=== PATIENT | male | born 1930 | race Caucasian/White ===

== ENCOUNTER 2019-04-15 16:44 | Emergency (ER) | payer MEDICARE, OTHER ==
[~2019-04-15] VITALS: Ht 177 cm; Wt 72.0 kg
[2019-04-15] MEDS ORDERED: NS IV 1000 ML 1,000 ML IV ONE (17:17)
[2019-04-15] MEDS ORDERED: ACETAMINOPHEN 500 MG TAB (TYLENOL) PO STA (17:17)
[2019-04-15] MEDS ORDERED: TETANUS,DIPTH,PERTUSS P/F (BOOSTRIX) 0.5 ML VIAL IM ONE (17:30)
--- NOTE | 2019-04-15 17:42 | ED Fall/Injury ---
General Chief Complaint: Trauma-Non Activation Stated Complaint: FALL/HEAD INJ Nursing Triage Note: PT FELL AND LANDED ON HIS FACE. ABRASION TO NOSE, RIGHT HAND, FOREHEAD Source: patient, family (grandaujannter and grandson) Exam Limitations: no limitations History of Present Illness Date Seen by Provider: Apr 15, 2019 Time Seen by Provider: 17:10 Initial Comments 89 yo male patient presents to the ED with c/o falling after slipping on the gravel at home. Patient reports landing on his face. He denies LOC, confusion, headache, dizziness, neck pain or back pain. abrasions noted to the rt hand, forehead, and nose. patient does c/o rt shoulder pain. Location Injury Occurred: HOME Occurred: just prior to arrival Injuries/Pain Location: head, face, upper extremity (rt hand and rt shoulder) Context: slipped Loss of Consciousness: no loss of consciousness Allergies and Home Medications Allergies Coded Allergies: Sulfa (Sulfonamide Antibiotics) (Unverified Allergy, Unknown, 04/15/19) Home Medications Tramadol HCl 50 Mg Tablet, 50 MG PO Q6H PRN for PAIN Prescribed by: KRUPA FELICIANO on 04/15/19 2227 Patient Home Medication List Home Medication List Reviewed: Yes Review of Systems Review of Systems Constitutional: no symptoms reported Eyes: No Symptoms Reported Ears, Nose, Mouth, Throat: see HPI Respiratory: no symptoms reported Cardiovascular: no symptoms reported Gastrointestinal: no symptoms reported Genitourinary: no symptoms reported Musculoskeletal: No back pain; joint pain (rt shoulder); No neck pain Skin: see HPI Psychiatric/Neurological: Denies Headache, Denies Numbness, Denies Paresthesia, Denies Seizure, Denies Tingling, Denies Weakness All Other Systems Reviewed Negative Unless Noted: Yes (Negative excepted noted.) Past Lixtolf-Lahwqn-Apxrpd Hx Past Med/Social Hx: Reviewed Nursing Past Med/Soc Hx Patient Social History Alcohol Use: Denies Use Recreational Drug Use: No Smoking Status: Never a Smoker 2nd Hand Smoke Exposure: No Recent Foreign Travel: No Contact w/Someone Who Travel: No Recent Infectious Disease Expo: No Recent Hopitalizations: No Physical Abuse: No Sexual Abuse: No Mistreated: No Fear: No Immunizations Up To Date Tetanus Booster (TDap): More than 5yrs Seasonal Allergies Seasonal Allergies: No Past Medical History Surgeries: Yes Adenoidectomy, Appendectomy, Tonsillectomy Respiratory: No Cardiac: No Neurological: No Genitourinary: Yes Prostate Problems, Kidney Stones Gastrointestinal: No Musculoskeletal: Yes (LEFT RIB FX) Fractures Endocrine: Yes Hypothyroidsim HEENT: Yes Cataract Loss of Vision: Denies Hearing Impairment: Denies Cancer: Yes Prostate Did You Recieve Any Treatments: Yes What Type of Treatment Did You: Other SEEDS IMPLANTED Psychosocial: No Integumentary: Yes Eczema Blood Disorders: No Family Medical History Reviewed Nursing Family Hx No Pertinent Family Hx Physical Exam Vital Signs Vital Signs - First Documented 04/15/19 16:53 Temp 37.0 Pulse 84 Resp 16 B/P (MAP) 147/107 (120) Pulse Ox 97 O2 Delivery Room Air Capillary Refill : Less Than 3 Seconds Height, Weight, BMI Height: '" Weight: lbs. oz. kg; 22.00 BMI Method: General Appearance: WD/WN, no apparent distress HEENT: PERRL/EOMI, TMs normal, pharynx normal, other (abrasions to the rt cheek and nose. No singh sign or raccoon eyes) Neck: non-tender, full range of motion, supple, normal inspection; No other (no stepoff deformity.) Cardiovascular: normal peripheral pulses, regular rate, rhythm, no edema, no gallop, no murmur Respiratory: chest non-tender, lungs clear, normal breath sounds, no respiratory distress, no accessory muscle use Peripheral Pulses: 2+ Carotid (R), 2+ Carotid (L), 2+ Dorsalis Pedis (R), 2+ Left Dors-Pedis (L), 2+ Radial Pulses (R), 2+ Radial Pulses (L) Gastrointestinal: normal bowel sounds, non tender, soft, no organomegaly; No distended Back: normal inspection, no vertebral tenderness; No decreased range of motion, No other (no stepoff deformity) Extremities: normal range of motion, no pedal edema, normal capillary refill, pelvis stable, other (right anterior shoulder mildly TTP. no swelling, ecchymosis or deformity. abrasions to the rt palm, rt thumb, rt posterio hand, and left thumb.) Neurologic/Psychiatric: alert, normal mood/affect, oriented x 3 Skin: normal color, warm/dry, other (see extremity and EENT exam above for description of abrasions.) Procedures/Interventions Wound Location: Face (right cheek) Wound Length (cm): 1.5 Wound's Depth, Shape: superficial, linear Betadine Prep?: No (wound scrubbed with chlorasept and sterile saline.) Other Closure Supply: Wound Adhesive Progress blood loss minimal. patient tolerated the procedure well. Progress/Results/Core Measures Results/Orders My Orders Orders - KRUPA FELICIANO Ed Iv/Invasive Line Start (04/15/19 17:17) Ct Head/Cervical Spine Wo (04/15/19 17:17) Shoulder, Right, 3 Views (04/15/19 17:17) Acetaminophen Tablet (Tylenol Tablet) (04/15/19 17:17) Dipht,Pertuss(Acell),Tet Adult (Boostrix (04/15/19 17:30) Ns Iv 1000 Ml (Sodium Chloride 0.9%) (04/15/19 17:17) Medications Given in ED Current Medications Medications Dose Ordered Sig/Linda Route Start Time Stop Time Status Last Admin Dose Admin Diphtheria/ Tetanus/Acell Pertussis 0.5 ml ONCE ONCE IM 04/15/19 17:30 04/15/19 17:31 DC 04/15/19 18:18 0.5 ML Sodium Chloride 1,000 ml @ 0 mls/hr Q0M ONCE IV 04/15/19 17:17 04/15/19 17:20 DC 04/15/19 17:26 999 MLS/HR Vital Signs/I&O 04/15/19 04/15/19 16:53 19:16 Temp 37.0 37.0 Pulse 84 80 Resp 16 16 B/P (MAP) 147/107 (120) 141/76 (120) Pulse Ox 97 100 O2 Delivery Room Air Room Air Blood Pressure Mean: 120 Diagnostic Imaging Diagonstic Imaging: CT Plain Films/CT/US/NM/MRI: c-spine, head Comments Date of Exam:04/15/19 CT HEAD/CERVICAL SPINE WO PROCEDURE: CT head and CT cervical spine without contrast. TECHNIQUE: Multiple contiguous axial images were obtained through the brain and cervical spine without the use of intravenous contrast. Sagittal and coronal reformations through the cervical spine were then performed. Auto Exposure Controls were utilized during the CT exam to meet ALARA standards for radiation dose reduction. INDICATION: Fell, head and neck pain. There are no prior studies available for comparison. CT HEAD: There is soft tissue edema over the right frontal bone. The bone windows show no sign of a skull fracture in this area however. No other acute bony abnormality appreciated either. There is no mass, shift of the midline or hemorrhage. The ventricles are not abnormally dilated. There are vague areas of low density in the periventricular white matter bilaterally. These findings are nonspecific but may be related to encephalomalacia from microvascular ischemia. Cortical atrophy is also seen. The degree of atrophy is consistent with the patient's age. The orbits and sinuses were not visualized in their entirety. Where visualized there is no acute abnormality. IMPRESSION: 1. There is soft tissue edema over the right frontal bone but there is no evidence for a skull fracture or for an acute intracranial abnormality. 2. If the patient's anticoagulated and if his symptoms of headache persist, then a short-term (24 hours) followup CT head exam should be obtained. 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 In addition there is moderate central stenosis on the right at this level with narrowing of the neural foramen on the right. There is also at least moderate degenerative disease at C5-C6 and C3-C4. There is no high-grade central stenosis at either of these levels or at any other level of the cervical spine. There is no fracture or acute bony abnormality evident. There is no sign of retropharyngeal edema. The thyroid gland is not well visualized but shows no definite abnormality. The lung apices are clear. IMPRESSION: 1. There is no sign acute bony abnormality. 2. There is degenerative disc and bone disease at C3-C4, C5-6 and C6-C7. The C6-C7 level is the most severely affected. Dictated on workstation # [id number] Reviewed: Reviewed by Me (radiology report reviewed by me) Diagonstic Imaging: Xray Plain Films/CT/US/NM/MRI: other (right shoulder) Comments Date of Exam:04/15/19 SHOULDER, RIGHT, 3 VIEWS Right shoulder at 5:42 Indication: Fell, shoulder pain. 3 views were obtained. There are no prior studies available for comparison. There is no fracture, dislocation or acute bony abnormality evident. There is mild degenerative disease of the glenohumeral joint and moderate degenerative disease of the acromioclavicular joint. The soft tissues are unremarkable. Impression: There is no evidence for an acute bony abnormality. Dictated on workstation # [id number] Reviewed: Reviewed by Me (radiology report reviewed by me) Departure Communication (Admissions) Patient seen and evaluated. CT head/cervical spine and x-ray of the right shoulder obtained. All findings discussed with the patient. All wounds sc rubbed with chlorhexidine and sterile saline. Steri-Strips with Mastisol applied to the skin tears of the left thumb and right hand. Dermabond applied to the nose abrasions and forehead abrasions. Plan for discharge to home. Impression Primary Impression: Minor head injury without loss of consciousness Qualified Codes: S09.90XA - Unspecified injury of head, initial encounter Additional Impressions: Laceration of right cheek Qualified Codes: S01.411A - Laceration without foreign body of right cheek and temporomandibular area, initial encounter Avulsion of skin of face Qualified Codes: S01.80XA - Unspecified open wound of other part of head, initial encounter Multiple skin tears Disposition: 01 HOME, SELF-CARE Condition: Improved Departure-Patient Inst. Decision time for Depature: 18:35 Referrals: NO,LOCAL PHYSICIAN (PCP/Family) Primary Care Physician Patient Instructions: Laceration Repair With Glue (DC), Minor Head Injury (DC) Add. Discharge Instructions: All discharge instructions reviewed with patient and/or family. Voiced understanding. Medications as instructed. Tylenol extra strength over-the- counter as directed for pain. Shower with antibacterial soap beginning tomorrow. No strenuous activity, lifting, pushing, pulling, climbing, bending over until released by your family practitioner. Ice pack as needed for pain. Follow-up with the family practitioner of your choice for recheck and to establish care as an outpatient, call tomorrow morning for appointment time. Return to the emergency department for worsened symptoms, changes in behavior, dizziness, seizure, vomiting, shortness of air, chest pain, numbness, weakness, or any other concerns. Scripts Tramadol HCl (Tramadol HCl) 50 Mg Tablet 50 MG PO Q6H PRN for PAIN, #10 TAB 0 Refills Prov: KRUPA FELICIANO 04/15/19 Work/School Note: Local [employer] Listing KRUPA FELICIANO Apr 15, 2019 17:42
--- NOTE | 2019-04-15 17:51 | Diagnostic Imaging Report ---
PROCEDURE: CT head and CT cervical spine without contrast. TECHNIQUE: Multiple contiguous axial images were obtained through the brain and cervical spine without the use of intravenous contrast. Sagittal and coronal reformations through the cervical spine were then performed. Auto Exposure Controls were utilized during the CT exam to meet ALARA standards for radiation dose reduction. INDICATION: Fell, head and neck pain. There are no prior studies available for comparison. CT HEAD: There is soft tissue edema over the right frontal bone. The bone windows show no sign of a skull fracture in this area however. No other acute bony abnormality appreciated either. There is no mass, shift of the midline or hemorrhage. The ventricles are not abnormally dilated. There are vague areas of low density in the periventricular white matter bilaterally. These findings are nonspecific but may be related to encephalomalacia from microvascular ischemia. Cortical atrophy is also seen. The degree of atrophy is consistent with the patient's age. The orbits and sinuses were not visualized in their entirety. Where visualized there is no acute abnormality. IMPRESSION: 1. There is soft tissue edema over the right frontal bone but there is no evidence for a skull fracture or for an acute intracranial abnormality. 2. If the patient's anticoagulated and if his symptoms of headache persist, then a short-term (24 hours) followup CT head exam should be obtained. 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 In addition there is moderate central stenosis on the right at this level with narrowing of the neural foramen on the right. There is also at least moderate degenerative disease at C5-C6 and C3-C4. There is no high-grade central stenosis at either of these levels or at any other level of the cervical spine. There is no fracture or acute bony abnormality evident. There is no sign of retropharyngeal edema. The thyroid gland is not well visualized but shows no definite abnormality. The lung apices are clear. IMPRESSION: 1. There is no sign acute bony abnormality. 2. There is degenerative disc and bone disease at C3-C4, C5-6 and C6-C7. The C6-C7 level is the most severely affected. Dictated by: Dictated on workstation # [id number]
--- NOTE | 2019-04-15 17:54 | Diagnostic Imaging Report ---
Right shoulder at 5:42 Indication: Fell, shoulder pain. 3 views were obtained. There are no prior studies available for comparison. There is no fracture, dislocation or acute bony abnormality evident. There is mild degenerative disease of the glenohumeral joint and moderate degenerative disease of the acromioclavicular joint. The soft tissues are unremarkable. Impression: There is no evidence for an acute bony abnormality. Dictated by: Dictated on workstation # [id number]
[2019-04-15] MEDS ORDERED: TRAM50TA2 PO (18:37)
[2019-04-15 19:16] VITALS: BP 141/76
== END 2019-04-15 19:16 | disposition home or self-care (01) ==
LOC: EDUNIT# 16:44 → ER 16:45
DX: S09.90XA Unspecified injury of head, initial encounter (principal); S01.411A Laceration without foreign body of right cheek and temporomandibular area, initial encounter; S01.80XA Unspecified open wound of other part of head, initial encounter; S61.012A Laceration without foreign body of left thumb without damage to nail, initial encounter; S61.411A Laceration without foreign body of right hand, initial encounter; E03.9 Hypothyroidism, unspecified; Z88.2 Allergy status to sulfonamides; Z90.89 Acquired absence of other organs; Z85.46 Personal history of malignant neoplasm of prostate; Z90.49 Acquired absence of other specified parts of digestive tract; Z87.442 Personal history of urinary calculi; W01.10XA Fall on same level from slipping, tripping and stumbling with subsequent striking against unspecified object, initial encounter; Y92.009 Unspecified place in unspecified non-institutional (private) residence as the place of occurrence of the external cause
CPT/HCPCS: 70450; 72125; 73030; 90715

== ENCOUNTER 2019-07-10 10:40 | Emergency (ER) | payer MEDICARE ==
[~2019-07-10] VITALS: Ht 177 cm; Wt 72.7 kg
[~2019-07-10 10:40] MED LIST: TRM50T PO
[2019-07-10] MEDS ORDERED: NITROGLYCERIN 0.4 MG SL TABS BTL 25'S SL ONE (10:53)
[2019-07-10] MEDS ORDERED: NITROGLYCERIN 0.4 MG SL TABS BTL 25'S SL PRN (11:00)
[2019-07-10] MEDS ORDERED: FAMOTIDINE 20MG/2ML IV (PEPCID) IV STA (11:02)
[2019-07-10 11:11] LABS: BASOPHILS % (AUTO) 0 % (0-10); EOSINOPHILS # (AUTO) 0.2 10^3/uL (0.0-0.3); EOSINOPHILS % (AUTO) 1 % (0-10); HEMATOCRIT 45 % (40-54); HEMOGLOBIN 15.1 G/DL (13.3-17.7); LYMPHOCYTES % (AUTO) 8 % (12-44); MEAN CORPUSCULAR HEMOGLOBIN 32 PG (25-34); MEAN CORPUSCULAR HGB CONC 33 G/DL (32-36); MEAN CORPUSCULAR VOLUME 96 FL (80-99); MEAN PLATELET VOLUME 10.8 FL (7.4-10.4); MONOCYTES # (AUTO) 1.3 X 10^3 (0.0-1.0); MONOCYTES % (AUTO) 10 % (0-12); NEUTROPHILS # (AUTO) 10.3 X 10^3 (1.8-7.8); NEUTROPHILS % (AUTO) 80 % (42-75); PLATELET COUNT 271 10^3/uL (130-400); RED CELL DISTRIBUTION WIDTH 14.9 % (10.0-14.5); WHITE BLOOD COUNT 12.9 10^3/uL (4.3-11.0)
[2019-07-10 11:23] LABS: PROTHROMBIN TIME PATIENT 13.1 SEC (12.2-14.7)
[2019-07-10 11:29] LABS: ALANINE AMINOTRANSFERASE 16 U/L (0-55); ALBUMIN 4.1 GM/DL (3.2-4.5); ALKALINE PHOSPHATASE 87 U/L (40-136); BILIRUBIN,TOTAL 0.4 MG/DL (0.1-1.0); BUN/CREATININE RATIO 21; CALCIUM 9.4 MG/DL (8.5-10.1); CARBON DIOXIDE 21 MMOL/L (21-32); CHLORIDE 107 MMOL/L (98-107); CREATININE SERUM 1.13 MG/DL (0.60-1.30); GFR ESTIMATED > 60; GLUCOSE 91 MG/DL (70-105); MAGNESIUM 1.8 MG/DL (1.6-2.4); SODIUM 141 MMOL/L (135-145); TOTAL PROTEIN 7.2 GM/DL (6.4-8.2)
--- NOTE | 2019-07-10 11:33 | Diagnostic Imaging Report ---
INDICATION: Chest pain. FINDINGS: The lungs are clear. The heart size and vascularity are normal. There is no failure, effusion, or pneumothorax. IMPRESSION: No acute appearing abnormality. Dictated by: Dictated on workstation # [id number]
[2019-07-10] MEDS ORDERED: ANTACID SUSP 30 ML UDC (MYLANTA) ONE (11:37)
[2019-07-10] MEDS ORDERED: LIDOCAINE 2% VISCOUS 15 ML UDC ONE (11:37)
[2019-07-10] MEDS ORDERED: LIDOCAINE 2% VISCOUS 15 ML UDC PO ONE (11:45)
[2019-07-10] MEDS ORDERED: ANTACID SUSP 30 ML UDC (MYLANTA) PO ONE (11:45)
--- NOTE | 2019-07-10 11:47 | ED Chest Pain ---
General Chief Complaint: Chest Pain Stated Complaint: CHEST PAIN Nursing Triage Note: ARRIVED VIA AMB TO ROOM 08 WITH CHEST PAIN STARTING AT 0300. PT STATES HE TOOK A FULL STRENGTH AT 0300 AND 0600. Nursing Sepsis Screen: No Definite Risk Source: patient Exam Limitations: no limitations History of Present Illness Date Seen by Provider: Jul 10, 2019 Time Seen by Provider: 10:55 Initial Comments Here with report of epigastric and low chest pain that started at 3 AM and went away after some breathing exercises. Came back at 6 AM and lasted for some time. He did take 2 full strength aspirins. Ultimately presented for the pain but it is gone now. Denies nausea, vomiting, breathing problems or sweating. States the pain is sharp. 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 NURSE: Yes NTG SL MATERNAL CHILD NURSE: No Associated Symptoms: abdominal pain; No back pain, No diaphoresis, No edema, No fever/chills, No nausea/vomiting, No shortness of breath, No weakness Allergies and Home Medications Allergies Coded Allergies: Sulfa (Sulfonamide Antibiotics) (Unverified Allergy, Unknown, 04/15/19) Home Medications Tramadol HCl 50 Mg Tablet, 50 MG PO Q6H PRN for PAIN Prescribed by: KRUPA FELICIANO on 04/15/19 [id number] Patient Home Medication List Home Medication List Reviewed: Yes Review of Systems Review of Systems Constitutional: see HPI; No chills, No fever EENTM: No Symptoms Reported Respiratory: No Symptoms Reported Cardiovascular: Denies Chest Pain Gastrointestinal: Abdominal Pain; Denies Diarrhea, Denies Nausea, Denies Vomiting Genitourinary: No Symptoms Reported Musculoskeletal: no symptoms reported Skin: no symptoms reported All Other Systems Reviewed Negative Unless Noted: Yes Past Ojalnyc-Zuhqqh-Cbikgn Hx Past Med/Social Hx: Reviewed Nursing Past Med/Soc Hx Patient Social History Alcohol Use: Denies Use Recreational Drug Use: No Smoking Status: Never a Smoker 2nd Hand Smoke Exposure: No Recent Foreign Travel: No Contact w/Someone Who Travel: No Recent Infectious Disease Expo: No Recent Hopitalizations: No Immunizations Up To Date Tetanus Booster (TDap): More than 5yrs Seasonal Allergies Seasonal Allergies: No Past Medical History Surgeries: Yes Adenoidectomy, Appendectomy, Tonsillectomy Respiratory: No Cardiac: No Neurological: No Genitourinary: Yes Prostate Problems, Kidney Stones Gastrointestinal: No Musculoskeletal: Yes (LEFT RIB FX) Fractures Endocrine: Yes Hypothyroidsim HEENT: Yes Cataract Loss of Vision: Denies Hearing Impairment: Denies Cancer: Yes Prostate Did You Recieve Any Treatments: Yes What Type of Treatment Did You: Other Psychosocial: No Integumentary: Yes Eczema Blood Disorders: No Family Medical History Reviewed Nursing Family Hx No Pertinent Family Hx Physical Exam Vital Signs Vital Signs - First Documented 07/10/19 10:40 Temp 37.0 Pulse 69 Resp 16 B/P (MAP) 169/80 (109) Pulse Ox 99 O2 Delivery Room Air Capillary Refill : Less Than 3 Seconds Height, Weight, BMI Height: '" Weight: lbs. oz. kg; 23.00 BMI Method: General Appearance: No Apparent Distress, WD/WN HEENT: PERRL/EOMI, Pharynx Normal Neck: Non Tender, Supple Respiratory: Lungs Clear, Normal Breath Sounds Cardiovascular: Regular Rate, Rhythm, No Murmur Gastrointestinal: Non Tender, Soft Extremity: Normal Range of Motion, Non Tender Neurologic/Psychiatric: Alert, Oriented x3 Skin: Normal Color, Warm/Dry, Other (as above block mole to the left upper chest) Progress/Results/Core Measures Results/Orders Lab Results Laboratory Tests Test 07/10/19 11:03 07/10/19 13:11 Range/Units White Blood Count 12.9 H 4.3-11.0 10^3/uL Red Blood Count 4.71 4.35-5.85 10^6/uL Hemoglobin 15.1 13.3-17.7 G/DL Hematocrit 45 40-54 % Mean Corpuscular Volume 96 80-99 FL Mean Corpuscular Hemoglobin 32 25-34 PG Mean Corpuscular Hemoglobin Concent 33 32-36 G/DL Red Cell Distribution Width 14.9 H 10.0-14.5 % Platelet Count 271 130-400 10^3/uL Mean Platelet Volume 10.8 H 7.4-10.4 FL Neutrophils (%) (Auto) 80 H 42-75 % Lymphocytes (%) (Auto) 8 L 12-44 % Monocytes (%) (Auto) 10 0-12 % Eosinophils (%) (Auto) 1 0-10 % Basophils (%) (Auto) 0 0-10 % Neutrophils # (Auto) 10.3 H 1.8-7.8 X 10^3 Lymphocytes # (Auto) 1.0 1.0-4.0 X 10^3 Monocytes # (Auto) 1.3 H 0.0-1.0 X 10^3 Eosinophils # (Auto) 0.2 0.0-0.3 10^3/uL Basophils # (Auto) 0.0 0.0-0.1 10^3/uL Prothrombin Time 13.1 12.2-14.7 SEC INR Comment 1.0 0.8-1.4 Activated Partial Thromboplast Time 37 H 24-35 SEC Sodium Level 141 135-145 MMOL/L Potassium Level 4.0 3.6-5.0 MMOL/L Chloride Level 107 98-107 MMOL/L Carbon Dioxide Level 21 21-32 MMOL/L Anion Gap 13 5-14 MMOL/L Blood Urea Nitrogen 24 H 7-18 MG/DL Creatinine 1.13 0.60-1.30 MG/DL Estimat Glomerular Filtration Rate > 60 BUN/Creatinine Ratio 21 Glucose Level 91 70-105 MG/DL Calcium Level 9.4 8.5-10.1 MG/DL Corrected Calcium 9.3 8.5-10.1 MG/DL Magnesium Level 1.8 1.6-2.4 MG/DL Total Bilirubin 0.4 0.1-1.0 MG/DL Aspartate Amino Transf (AST/SGOT) 16 5-34 U/L Alanine Aminotransferase (ALT/SGPT) 16 0-55 U/L Alkaline Phosphatase 87 40-136 U/L Myoglobin 48.5 10.0-92.0 NG/ML Troponin I < 0.028 < 0.028 <0.028 NG/ML Total Protein 7.2 6.4-8.2 GM/DL Albumin 4.1 3.2-4.5 GM/DL Free Thyroxine 0.88 0.70-1.48 NG/DL TSH Otter Testing 7.62 H 0.35-4.94 UIU/ML My Orders Orders - RADHA GRAYSON MD Ekg Tracing (07/10/19 10:42) Cbc With Automated Diff (07/10/19 10:44) Magnesium (07/10/19 10:44) Chest 1 View, Ap/Pa Only (1/7/20 10:44) Comprehensive Metabolic Panel (07/10/19 10:44) Myoglobin Serum (07/10/19 10:44) Protime With Inr (07/10/19 10:44) Partial Thromboplastin Time (07/10/19 10:44) O2 (07/10/19 10:44) Monitor-Rhythm Ecg Trace Only (07/10/19 10:44) Lipid Panel (07/11/19 06:00) Ed Iv/Invasive Line Start (07/10/19 10:44) Nitroglycerin 0.4 Mg Btl 25's (Nitrostat (07/10/19 11:00) Nitroglycerin 0.4 Mg Btl 25's (Nitrostat (07/10/19 10:53) Famotidine Injection (Pepcid Injection) (07/10/19 11:02) Troponin I (07/10/19 11:03) Thyroid Analyzer (07/10/19 11:39) Lidocaine 2% Viscous 15 Ml (Xylocaine Vi (07/10/19 11:45) Antacid Suspension (Mylanta Suspension (07/10/19 11:45) Antacid Suspension (Mylanta Suspension (07/10/19 11:37) Lidocaine 2% Viscous 15 Ml (Xylocaine Vi (07/10/19 11:37) Pantoprazole Injection (Protonix Injecti (07/10/19 12:00) Pantoprazole Injection (Protonix Injecti (07/10/19 11:52) Troponin I (07/10/19 13:00) Free T4 (Free Thyroxine) (07/10/19 11:03) Medications Given in ED Current Medications Medications Dose Ordered Sig/Linda Route Start Time Stop Time Status Last Admin Dose Admin Al Hydrox/Mg Hydrox/Simethicone 30 ml ONCE ONCE PO 07/10/19 11:45 07/10/19 11:46 DC 07/10/19 11:43 30 ML Lidocaine HCl 15 ml ONCE ONCE PO 07/10/19 11:45 07/10/19 11:46 DC 07/10/19 11:43 15 ML Pantoprazole 40 mg ONCE ONCE IV 07/10/19 12:00 07/10/19 12:01 DC 07/10/19 11:58 40 MG Vital Signs/I&O 07/10/19 10:40 Temp 37.0 Pulse 69 Resp 16 B/P (MAP) 169/80 (109) Pulse Ox 99 O2 Delivery Room Air Blood Pressure Mean: 109 Progress Progress Note : Progress Note Seen and evaluated. IV, labs, EKG and chest x-ray ordered. No aspirin as ER to check that. We will hold nitroglycerin at this point due to pain in resolved. Pepcid 20 mg IV. Monitor patient. 1145: Pain returned into the mid chest. We will try GI cocktail. If that does not help, we will give nitroglycerin sublingual. Monitor patient. Patient does report that he has been out of his meds including his reflux medicines for 3 days. They should be here now. We will go ahead and give Protonix 40 mg IV. 1340: Overall better. No return of chest pain. Repeat troponin is negative. This does seem to be more related to reflux than cardiovascular disease. I think is safe for discharge home but he will need follow-up with cardiology. This was discussed with patient and family. He again reports that he intends on following up with Dr. Otis Holbrook so I will go ahead and send a copy of his chart over to him so he has the information. Patient and family were given information on the sorting supervisor in [facility] and instructed for follow-up. Discharge home with return precautions. Patient and family verbalize understanding instructions and agreement with plan. 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 No evidence of ST elevation [place]. No previous available for comparison. Interpreted by me. Diagnostic Imaging Diagonstic Imaging: Xray Plain Films/CT/US/NM/MRI: chest Comments [facility] [place], [place] NAME: PENELOPE DELEON [facility] REC#: [id number] PT STATUS: REG ER : 1930 PHYSICIAN: RADHA GRAYSON MD ADMIT DATE: 07/10/19/ER Draft Date of Exam:07/10/19 CHEST 1 VIEW, AP/PA ONLY INDICATION: Chest pain. FINDINGS: The lungs are clear. The heart size and vascularity are normal. There is no failure, effusion, or pneumothorax. IMPRESSION: No acute appearing abnormality. Dictated on workstation # [id number] Dict: 07/10/19 1132 Trans: 07/10/19 1133 [id number] Interpreted by: DIANE ROCHE Electronically signed by: Departure Impression Primary Impression: Chest pain Qualified Codes: R07.9 - Chest pain, unspecified Additional Impression: Gastroesophageal reflux disease Qualified Codes: K21.9 - Gastro-esophageal reflux disease without esophagitis Disposition: HOME, SELF-CARE Condition: Stable Departure-Patient Inst. Decision time for Depature: 13:53 Referrals: [facility] Tarik JUSTIN MD, BASHAR J MD NO,LOCAL PHYSICIAN (PCP) Primary Care Physician OTIS HOLBROOK MD Patient Instructions: Chest Pain (DC), Acid Reflux (Gastroesophageal Reflux Disease), Adult (DC) Add. Discharge Instructions: All discharge instructions reviewed with patient and/or family. Voiced understanding. You need to follow-up with your primary care physician. Call and make appointment with Dr. Holbrook. Follow-up with one of the sorting supervisor listed within one week for recheck and further evaluation. Return for worse pain, fever, vomiting, weakness, breathing problems or other concerns as needed. You may take [id number] omeprazole 20 mg once daily until your prescription arrives for your stomach medicine. You may also take [id number] Pepcid/famotidine 20 mg once or twice daily as needed for heartburn. Copy Copies To 1: OTIS HOLBROOK MD, TIMOTHY D MD Jul 10, 2019 11:47
[2019-07-10] MEDS ORDERED: PANTOPRAZOLE 40 MG (PROTONIX) VIAL ONE (11:52)
[2019-07-10] MEDS ORDERED: PANTOPRAZOLE 40 MG (PROTONIX) VIAL IV ONE (12:00)
[2019-07-10 12:19] LABS: TSH (THYROID ANALYZER) 7.62 UIU/ML (0.35-4.94)
[2019-07-10 12:57] LABS: FREE T4 (FREE THYROXINE) 0.88 NG/DL (0.70-1.48)
--- NOTE | 2019-07-10 13:11 | NUR ---
repeat troponin drawn and sent to lab
[2019-07-10 14:09] VITALS: BP 144/80
[2019-07-10] MEDS ORDERED: OMEP40CA36 PO (14:09)
== END 2019-07-10 14:15 | disposition home or self-care (01) ==
LOC: EDUNIT# 10:40 → ER 10:41
DX: R07.9 Chest pain, unspecified (principal); K21.9 Gastro-esophageal reflux disease without esophagitis; E03.9 Hypothyroidism, unspecified; Z88.2 Allergy status to sulfonamides; Z85.46 Personal history of malignant neoplasm of prostate; Z90.89 Acquired absence of other organs; Z90.49 Acquired absence of other specified parts of digestive tract; Z87.442 Personal history of urinary calculi
CPT/HCPCS: 36415; 71045; 80053; 83735; 83874; 84439; 84443; 84484; 85025; 85610; 85730; 93005; 93041; 96374; 96375

== ENCOUNTER 2020-01-19 21:02 | Emergency (ER) | payer MEDICARE ==
[~2020-01-19] VITALS: Ht 177 cm; Wt 75.0 kg
[~2020-01-19 21:02] MED LIST changes: +OMEP40CA27 PO
--- OUTSIDE RECORDS SUMMARY | 2020-01-19 21:09 | XMS REPORT | Continuity of Care Document ---
Author Organization Unknown Address Unknown Phone Unavailable Allergies Active Description Code Type Severity Reaction Onset Reported/Identified Relationship to Patient Clinical Status Yes Sulfa (Sulfonamide Antibiotics) [id number] 0491 Drug Allergy Unknown N/A 019 Medications There is no data. Problems Date Dx Coded Attending Type Code Diagnosis Diagnosed By 11/15/2018 Winifred Valenzuela W R21 Rash Winifred Valenzuela 04/15/2019 KRUPA BELLAMY Ot E03.9 HYPOTHYROIDISM, UNSPECIFIED 04/15/2019 KRUPA BELLAMY Ot S01.411A LACERATION W/O FB OF RIGHT CHEEK AND TMJ 04/15/2019 KRUPA BELLAMY Ot S01.80XA UNSPECIFIED OPEN WOUND OF OTHER PART OF 04/15/2019 KRUPA BELLAMY Ot S09.90XA UNSPECIFIED INJURY OF HEAD, INITIAL ENCO 04/15/2019 KRUPA BELLAMY Ot S61.012A LACERATION W/O FB OF LEFT THUMB W/O ERMA 04/15/2019 KRUPA BELLAMY Ot S61.411A LACERATION WITHOUT FOREIGN BODY OF RIGHT 04/15/2019 KRUPA BELLAMY Ot W01.10XA FALL SAME LEV FROM SLIP/TRIP W STRIKE AG 04/15/2019 KRUPA BELLAMY Ot Y92.[address] [facility] [address] IN [facility] NON-INSTITUT (PRIVATE 04/15/2019 KRUPA BELLAMY Ot Z85.46 PERSONAL HISTORY OF MALIGNANT NEOPLASM O 04/15/2019 KRUPA BELLAMY Ot Z87.442 PERSONAL HISTORY OF URINARY CALCULI 04/15/2019 KRUPA BELLAMY Ot Z88.2 ALLERGY STATUS TO SULFONAMIDES STATUS 04/15/2019 KRUPA BELLAMY Ot Z90.49 ACQUIRED ABSENCE OF OTHER SPECIFIED PART 04/15/2019 KRUPA BELLAMY Ot Z90.89 ACQUIRED ABSENCE OF OTHER ORGANS 04/27/2019 KRUPA BELLAMY Ot E03.9 HYPOTHYROIDISM, UNSPECIFIED 04/27/2019 KRUPA BELLAMY Ot S01.411A LACERATION W/O FB OF RIGHT CHEEK AND TMJ 04/27/2019 KRUPA BELLAMY Ot S01.80XA UNSPECIFIED OPEN WOUND OF OTHER PART OF 04/27/2019 KRUPA BELLAMY Ot S09.90XA UNSPECIFIED INJURY OF HEAD, INITIAL ENCO 04/27/2019 KRUPA BELLAMY Ot S61.012A LACERATION W/O FB OF LEFT THUMB W/O ERMA 04/27/2019 KRUPA BELLAMY Ot S61.411A LACERATION WITHOUT FOREIGN BODY OF RIGHT 04/27/2019 KRUPA BELLAMY Ot W01.10XA FALL SAME LEV FROM SLIP/TRIP W STRIKE AG 04/27/2019 KRUPA BELLAMY Ot Y92.[address] IN [facility] NON-INSTITUT (PRIVATE 04/27/2019 KRUPA BELLAMY Ot Z85.46 PERSONAL HISTORY OF MALIGNANT NEOPLASM O 04/27/2019 KRUPA BELLAMY Ot Z87.442 PERSONAL HISTORY OF URINARY CALCULI 04/27/2019 KRUPA BELLAMY Ot Z88.2 ALLERGY STATUS TO SULFONAMIDES STATUS 04/27/2019 KRUPA BELLAMY Ot Z90.49 ACQUIRED ABSENCE OF OTHER SPECIFIED PART 04/27/2019 KRUPA BELLAMY Ot Z90.89 ACQUIRED ABSENCE OF OTHER ORGANS 07/10/2019 RADHA GRAYSON MD, Ot E03.9 HYPOTHYROIDISM, UNSPECIFIED 07/10/2019 RADHA GRAYSON MD, Ot K21.9 GASTRO-ESOPHAGEAL REFLUX DISEASE WITHOUT 07/10/2019 RADHA GRAYSON MD Ot R07.9 CHEST PAIN, UNSPECIFIED 07/10/2019 RADHA GRAYSON MD Ot Z85.46 PERSONAL HISTORY OF MALIGNANT NEOPLASM O 07/10/2019 RADHA GRAYSON MD, Ot Z87.442 PERSONAL HISTORY OF URINARY CALCULI 07/10/2019 RADHA GRAYSON MD Ot Z88.2 ALLERGY STATUS TO SULFONAMIDES STATUS 07/10/2019 RADHA GRAYSON MD Ot Z90.49 ACQUIRED ABSENCE OF OTHER SPECIFIED PART 07/10/2019 RADHA GRAYSON MD Ot Z90.89 ACQUIRED ABSENCE OF OTHER ORGANS 07/16/2019 RADHA GRAYSON MD, Ot E03.9 HYPOTHYROIDISM, UNSPECIFIED 07/16/2019 RADHA GRAYSON MD, Ot K21.9 GASTRO-ESOPHAGEAL REFLUX DISEASE WITHOUT 07/16/2019 RADHA GRAYSON MD, Ot R07.9 CHEST PAIN, UNSPECIFIED 07/16/2019 RADHA GRAYSON MD, Ot Z85.46 PERSONAL HISTORY OF MALIGNANT NEOPLASM O 07/16/2019 RADHA GRAYSON MD, Ot Z87.442 PERSONAL HISTORY OF URINARY CALCULI 07/16/2019 RADHA GRAYSON MD, Ot Z88.2 ALLERGY STATUS TO SULFONAMIDES STATUS 07/16/2019 RADHA GRAYSON MD, Ot Z90.49 ACQUIRED ABSENCE OF OTHER SPECIFIED PART 07/16/2019 RADHA GRAYSON MD, Ot Z90.89 ACQUIRED ABSENCE OF OTHER ORGANS Procedures Code Description [place] [address] OFFI CE VISIT-RETURN Winifred Valenzuela 11/15/2018 [id number] [facility] Nicolas Winifred 11/15/2018 Results Test Result Range Complete blood count (CBC) with automate d white blood cell (WBC) differential - 07/10/19 11:03 Blood leukocytes automated count (number/volume) 12.9 10*3/uL 4.3-11.0 Blood erythrocytes automated count (number/volume) 4.71 10*6/uL 4.35-5.85 Venous blood hemoglobin measurement (mass/volume) 15.1 g/dL 13.3-17.7 Blood hematocrit (volume fraction) 45 % 40-54 Automated erythrocyte mean corpuscular volume 96 [ foz_us] 80-99 Automated erythrocyte mean corpuscular h emoglobin (mass per erythrocyte) 32 pg 25-34 Automated erythrocyte mean corpuscular h emoglobin concentration measurement (mass/volume) 33 g/dL 32-36 Automated erythrocyte distribution width ratio 14. 9 % 10.0- 14.5 Automated blood platelet count (count/volume) 271 10*3/uL 130-400 Automated blood platelet mean volume measurement 10.8 [foz_us] 7.4-10.4 Automated blood neutrophils/100 leukocytes 80 % 42-75 Automated blood lymphocytes/100 leukocytes 8 % 12-44 Blood monocytes/100 leukocytes 10 % 0-12 Automated blood eosinophils/100 leukocytes 1 % 0-10 Automated blood basophils/100 leukocytes 0 % 0-10 Blood neutrophils automated count (number/volume) 10.3 10*3 1.8-7.8 Blood lymphocytes automated count (number/volume) 1.0 10*3 1.0-4.0 Blood monocytes automated count (number/volume) 1. 3 10*3 0.0-1.0 Automated eosinophil count 0.2 10*3/uL 0 .0-0.3 Automated blood basophil count (count/volume) 0.0 10*3/uL 0.0-0.1 PT panel in platelet poor plasma by coag ulation assay - 07/10/19 11:03 Prothrombin time (PT) in platelet poor plasma by coagu lation assay 13.1 s 12.2-14.7 INR in platelet poor plasma or blood by coagulation as say 1.0 0.8-1.4 Activated partial thromboplastin time (a PTT) in platelet poor plasma bycoagulation assay - 07/10/19 11:03 Activated partial thromboplastin time (a PTT) in platelet poor plasma bycoagulation assay 37 s 24-35 Comprehensive metabolic panel - 07/10/19 11:03 Serum or plasma sodium measurement (moles/volume) 141 mmol/L 135-145 Serum or plasma potassium measurement (moles/volume) 4.0 mmol/L 3.6-5.0 Serum or plasma chloride measurement (moles/volume) 107 mmol/L 98-107 Carbon dioxide 21 mmol/L 21-32 Serum or plasma anion gap determination (moles/volume) 13 mmol/L 5-14 Serum or plasma urea nitrogen measurement (mass/volume ) 24 mg/dL 7-18 Serum or plasma creatinine measurement (mass/volume) 1.13 mg/dL 0.60-1.30 Serum or plasma urea nitrogen/creatinine mass ratio 21 NRG Serum or plasma creatinine measurement w ith calculation of estimated glomerular filtration rate > NRG Serum or plasma glucose measurement (mass/volume) 91 mg/dL 70-105 Serum or plasma calcium measurement (mass/volume) 9.4 mg/dL 8.5-10.1 Serum or plasma total bilirubin measurement (mass/volu me) 0.4 mg/dL 0.1-1.0 Serum or plasma alkaline phosphatase cody surement (enzymatic activity/volume) 87 U/L 40-136 Serum or plasma aspartate aminotransfera se measurement (enzymatic activity/volume) 16 U/L 5-34 Serum or plasma alanine aminotransferase measurement (enzymatic activity/volume) 16 U/L 0-55 Serum or plasma protein measurement (mass/volume) 7.2 g/dL 6.4-8.2 Serum or plasma albumin measurement (mass/volume) 4.1 g/dL 3.2-4.5 CALCIUM CORRECTED 9.3 mg/dL 8.5-10.1 Magnesium - 07/10/19 11:03 Magnesium 1.8 mg/dL 1.6-2.4 Serum or plasma troponin i.cardiac measu rement (mass/volume) - 07/10/19 11:03 Serum or plasma troponin i.cardiac measurement (mass/v olume) < ng/mL <0.028 Myoglobin, serum - 07/10/19 11:03 Myoglobin, serum 48.5 ng/mL 10.0-92.0 Serum or plasma thyroxine (T4) free cyndi urement (mass/volume) - 07/10/19 11:03 Serum or plasma thyroxine (T4) free measurement (mass/ volume) 0.88 ng/dL 0.70-1.48 Serum or plasma thyrotropin measurement by detection limit <=0.05 miu/l (units/volume) - 07/10/19 11:03 Serum or plasma thyrotropin measurement by detection limit <=0.05 miu/l (units/volume) 7.62 u[iU]/mL 0.35-4.94 Serum or plasma troponin i.cardiac measu rement (mass/volume) - 07/10/19 13:11 Serum or plasma troponin i.cardiac measurement (mass/v olume) < ng/mL <0.028 Encounters ACCT No. Visit Date/Time Discharge Status Pt. Type Provider Facility Loc./Unit Complaint [id number] 11/15/2018 10:45:00 11/15/2018 23:5 9:59 CLS Outpatient Winifred Valenzuela [id number] 07/10/2019 10:41:00 020 14:15:00 DIS Emergency RENUKA DOMÍNGUEZ, RADHA [facility] ER CHEST PAIN [id number] 04/15/2019 16:45:00 19:16:00 DIS Emergency JODIE MARQUEZ, KRUPA Mcall[facility] ER FALL/HEAD INJ
[2020-01-19 21:37] LABS: BASOPHILS % (AUTO) 0 % (0-10); EOSINOPHILS # (AUTO) 0.4 10^3/uL (0.0-0.3); EOSINOPHILS % (AUTO) 5 % (0-10); HEMATOCRIT 43 % (40-54); HEMOGLOBIN 14.4 G/DL (13.3-17.7); LYMPHOCYTES # (AUTO) 0.8 X 10^3 (1.0-4.0); LYMPHOCYTES % (AUTO) 9 % (12-44); MEAN CORPUSCULAR HEMOGLOBIN 31 PG (25-34); MEAN CORPUSCULAR HGB CONC 33 G/DL (32-36); MEAN CORPUSCULAR VOLUME 95 FL (80-99); MEAN PLATELET VOLUME 10.6 FL (7.4-10.4); MONOCYTES # (AUTO) 0.5 X 10^3 (0.0-1.0); MONOCYTES % (AUTO) 5 % (0-12); NEUTROPHILS # (AUTO) 7.3 X 10^3 (1.8-7.8); NEUTROPHILS % (AUTO) 81 % (42-75); PLATELET COUNT 304 10^3/uL (130-400); RED CELL DISTRIBUTION WIDTH 13.8 % (10.0-14.5)
[2020-01-19 21:47] LABS: ALBUMIN 3.8 GM/DL (3.2-4.5); CHLORIDE 107 MMOL/L (98-107); POTASSIUM 3.9 MMOL/L (3.6-5.0); SODIUM 139 MMOL/L (135-145)
[2020-01-19 21:49] LABS: CALCIUM 8.8 MG/DL (8.5-10.1)
[2020-01-19 21:50] LABS: GLUCOSE 119 MG/DL (70-105); TOTAL PROTEIN 6.9 GM/DL (6.4-8.2)
[2020-01-19 21:51] LABS: CARBON DIOXIDE 19 MMOL/L (21-32)
[2020-01-19 21:52] LABS: BILIRUBIN,TOTAL 0.8 MG/DL (0.1-1.0)
[2020-01-19 21:53] LABS: ALKALINE PHOSPHATASE 69 U/L (40-136)
[2020-01-19 21:54] LABS: CREATININE SERUM 1.46 MG/DL (0.60-1.30); GFR ESTIMATED 46
[2020-01-19 21:55] LABS: BUN/CREATININE RATIO 12
[2020-01-19 21:56] LABS: ALANINE AMINOTRANSFERASE 15 U/L (0-55); MAGNESIUM 1.7 MG/DL (1.6-2.4)
--- NOTE | 2020-01-19 22:05 | ED General ---
General Chief Complaint: General Problems/Pain Stated Complaint: WEAKNESS/SWOLLEN LEGS Nursing Triage Note: Pt ambulates to [facility] 3 with c/o "body itch" x 4.5 yrs that's gotten worse over past 5 days, unrelieved by eucerin cream presscribed by clover. Nursing Sepsis Screen: No Definite Risk Source of Information: Patient Exam Limitations: No Limitations History of Present Illness Date Seen by Provider: Jan 19, 2020 Time Seen by Provider: 21:25 Initial Comments Here with report of a variety of complaints but seems to be centered around itching to the upper and lower extremities that keeps waking him up daily. When his family dropped him off, they reported that he had weakness and swollen legs. Patient states that he actually is tired and he is itching. Denies chest pain or breathing problems. Does admit to feeling weak but attributes that to the tiredness. He apparently has had a variety of treatments for the itching of the skin of his chest and upper and lower extremities. Currently this involves Eucerin cream but he has been on steroids in the past. He states the steroids did not do anything. Denies fever or chills. Denies upper respiratory symptoms, cough or shortness of breath. Does admit to swelling of the legs with left greater than right and states that's typical. Timing/Duration: 1 Week Severity: Moderate Associated Systoms: No Chest Pain, No Cough, No Fever/Chills, No Nausea/Vomiting, No Shortness of Air; Weakness Allergies and Home Medications Allergies Coded Allergies: Sulfa (Sulfonamide Antibiotics) (Unverified Allergy, Unknown, 04/15/19) Home Medications Omeprazole 40 Mg Capsule.dr, 40 MG PO DAILY Prescribed by: RADHA GRAYSON on 07/10/19 1409 Tramadol HCl 50 Mg Tablet, 50 MG PO Q6H PRN for PAIN Prescribed by: KRUPA FELICIANO on 04/15/19 1837 Patient Home Medication List Home Medication List Reviewed: Yes Review of Systems Review of Systems Constitutional: see HPI; No chills, No fever EENTM: No nose congestion, No throat pain Respiratory: No cough, No short of breath Cardiovascular: No chest pain; edema (left lower extremity and to lesser extent right lower extremity. States typical and unchanged) Gastrointestinal: no symptoms reported Genitourinary: no symptoms reported Skin: change in color, lesions, pruritus, rash (involving upper and lower extremities and anterior torso and low back) Psychiatric/Neurological: See HPI Hematologic/Lymphatic: No Symptoms Reported All Other Systems Reviewed Negative Unless Noted: Yes Past Lifqign-Sxbuce-Bfdatv Hx Past Med/Social Hx: Reviewed Nursing Past Med/Soc Hx Patient Social History Alcohol Use: Denies Use Recreational Drug Use: No Smoking Status: Never a Smoker 2nd Hand Smoke Exposure: No Recent Foreign Travel: No Contact w/Someone Who Travel: No Recent Infectious Disease Expo: No Recent Hopitalizations: No Immunizations Up To Date Tetanus Booster (TDap): More than 5yrs Seasonal Allergies Seasonal Allergies: No Past Medical History Surgeries: Yes Adenoidectomy, Appendectomy, Tonsillectomy Respiratory: No Cardiac: No Neurological: No Genitourinary: Yes Prostate Problems, Kidney Stones Gastrointestinal: No Musculoskeletal: Yes (LEFT RIB FX) Fractures Endocrine: Yes Hypothyroidsim HEENT: Yes Cataract Loss of Vision: Denies Hearing Impairment: Denies Cancer: Yes Prostate Did You Recieve Any Treatments: Yes What Type of Treatment Did You: Other Psychosocial: No Integumentary: Yes Eczema Blood Disorders: No Family Medical History Reviewed Nursing Family Hx No Pertinent Family Hx Physical Exam Vital Signs Vital Signs - First Documented 01/19/20 21:15 Temp 37.0 Pulse 114 Resp 20 B/P (MAP) 123/24 (57) Pulse Ox 96 O2 Delivery Room Air Capillary Refill : Less Than 3 Seconds Height, Weight, BMI Height: '" Weight: lbs. oz. kg; 23.00 BMI Method: General Appearance: No Apparent Distress, Thin HEENT: PERRL/EOMI, Pharynx Normal Neck: Non Tender, Supple Respiratory: Lungs Clear, Normal Breath Sounds Cardiovascular: No Murmur, Tachycardia Gastrointestinal: Non Tender, Soft Back: Normal Inspection, No CVA Tenderness, No Vertebral Tenderness Extremity: Normal Range of Motion, Non Tender, Pedal Edema (2+ bilateral lower extremities to mid tibia left slightly worse than right) Neurologic/Psychiatric: Alert, Oriented x3 Skin: Warm/Dry, Erythema, Rash (fine rash noted to bilateral upper extremities especially on the volar surfaces and near the antecubital space. Also notes a rash to the anterior torso greatest on the abdomen but also noted on the chest and low back. Bilateral lower extremities noted especially in the area of the thighs.) Progress/Results/Core Measures Suspected Sepsis Recent Fever Within 48 Hours: No Infection Criteria Present: None New/Unexplained Altered Menta: No Sepsis Screen: No Definite Risk SIRS Temperature: Pulse: 114 Respiratory Rate: 20 Laboratory Tests 01/19/20 21:31: White Blood Count 9.0 Blood Pressure 123 /24 Mean: 57 Laboratory Tests 01/19/20 21:31: Creatinine 1.46H, Platelet Count 304, Total Bilirubin 0.8 Results/Orders Lab Results Laboratory Tests Test 01/19/20 21:31 Range/Units White Blood Count 9.0 4.3-11.0 10^3/uL Red Blood Count 4.59 4.35-5.85 10^6/uL Hemoglobin 14.4 13.3-17.7 G/DL Hematocrit 43 40-54 % Mean Corpuscular Volume 95 80-99 FL Mean Corpuscular Hemoglobin 31 25-34 PG Mean Corpuscular Hemoglobin Concent 33 32-36 G/DL Red Cell Distribution Width 13.8 10.0-14.5 % Platelet Count 304 130-400 10^3/uL Mean Platelet Volume 10.6 H 7.4-10.4 FL Neutrophils (%) (Auto) 81 H 42-75 % Lymphocytes (%) (Auto) 9 L 12-44 % Monocytes (%) (Auto) 5 0-12 % Eosinophils (%) (Auto) 5 0-10 % Basophils (%) (Auto) 0 0-10 % Neutrophils # (Auto) 7.3 1.8-7.8 X 10^3 Lymphocytes # (Auto) 0.8 L 1.0-4.0 X 10^3 Monocytes # (Auto) 0.5 0.0-1.0 X 10^3 Eosinophils # (Auto) 0.4 H 0.0-0.3 10^3/uL Basophils # (Auto) 0.0 0.0-0.1 10^3/uL Sodium Level 139 135-145 MMOL/L Potassium Level 3.9 3.6-5.0 MMOL/L Chloride Level 107 98-107 MMOL/L Carbon Dioxide Level 19 L 21-32 MMOL/L Anion Gap 13 5-14 MMOL/L Blood Urea Nitrogen 18 7-18 MG/DL Creatinine 1.46 H 0.60-1.30 MG/DL Estimat Glomerular Filtration Rate 46 BUN/Creatinine Ratio 12 Glucose Level 119 H 70-105 MG/DL Calcium Level 8.8 8.5-10.1 MG/DL Corrected Calcium 9.0 8.5-10.1 MG/DL Magnesium Level 1.7 1.6-2.4 MG/DL Total Bilirubin 0.8 0.1-1.0 MG/DL Aspartate Amino Transf (AST/SGOT) 19 5-34 U/L Alanine Aminotransferase (ALT/SGPT) 15 0-55 U/L Alkaline Phosphatase 69 40-136 U/L Troponin I < 0.028 <0.028 NG/ML B-Type Natriuretic Peptide 23.3 <100.0 PG/ML Total Protein 6.9 6.4-8.2 GM/DL Albumin 3.8 3.2-4.5 GM/DL My Orders Orders - RADHA GRAYSON MD Ns Iv 500 Ml (Sodium Chloride 0.9%) (01/19/20 22:10) Prednisone Tablet (Deltasone Tablet) (01/19/20 23:00) Hydroxyzine Cap/Tab (Vistaril) (01/19/20 23:45) Medications Given in ED Current Medications Medications Dose Ordered Sig/Linda Route Start Time Stop Time Status Last Admin Dose Admin Prednisone 40 mg ONCE ONCE PO 01/19/20 23:00 01/19/20 23:01 DC 01/19/20 23:06 40 MG Sodium Chloride 500 ml @ 0 mls/hr Q0M ONCE IV 01/19/20 22:10 01/19/20 22:11 DC 01/19/20 22:48 500 MLS/HR Vital Signs/I&O 01/19/20 21:15 Temp 37.0 Pulse 114 Resp 20 B/P (MAP) 123/24 (57) Pulse Ox 96 O2 Delivery Room Air Capillary Refill : Less Than 3 Seconds Blood Pressure Mean: 57 Progress Note : Progress Note Seen and evaluated. IV, labs, EKG and chest x-ray ordered. Denies chest pain so no need for aspirin at this point. We will check basic labs. We will also call family to verify presenting complaints. Patient is adamant about that he is not having other problems other than itching. Monitor patient. 2330: We are discussed with the patient's family regarding presentation. They agree and admit that there is concerns related to the itching. This has been a chronic problem but worse over the last week. He does follow with Dr. Caceres. Labs and additional evaluation are not concerning. Prednisone 40 mg by mouth. Hydroxyzine 25 mg by mouth 1 now but he will not continue that outpatient. We will initiate Medrol Dosepak outpatient. He will continue follow-up with his primary doctor and radio reporter. Discharged home with return precautions. Patient verbalize understanding instructions and agreement with plan. ECG Initial ECG Impression Date: Jan 19, 2020 Initial ECG Impression Time: 21:31 Initial ECG Rate: 100 Initial ECG Rhythm: S.Tach Comment Sinus tachycardia with left axis deviation. Left atrial enlargement and left anterior fascicular block. No evidence of ST elevation MD. Similar to previous of 07/10/19. Interpreted by me. Diagnostic Imaging Diagonstic Imaging: Xray Plain Films/CT/US/NM/MRI: chest Comments NAME: PENELOPE DELEON MED REC#: [id number] PT STATUS: REG ER : 1930 PHYSICIAN: CLARENCE FREED APRN ADMIT DATE: 01/19/20/ER Draft Date of Exam:01/19/20 CHEST 1 VIEW, AP/PA ONLY INDICATION: Body itches. Worsening over the last 5 days. EXAMINATION: Chest, 01/19/2020. COMPARISON: 07/10/2019. FINDINGS: The cardiomediastinal silhouette is unremarkable. The pulmonary vasculature is within normal limits. The lungs and pleural spaces are clear. IMPRESSION: No evidence of an acute cardiopulmonary process. Dictated on workstation # [id number] Dict: 01/19/20 2157 Trans: 01/19/20 2209 [facility] [id number] Interpreted by: WEST ZHANG MD Electronically signed by: Departure Impression Primary Impression: Pruritus Additional Impression: Eczema Qualified Codes: L30.9 - Dermatitis, unspecified Disposition: HOME, SELF-CARE Condition: Stable Departure-Patient Inst. Decision time for Depature: 23:36 Referrals: NO,LOCAL PHYSICIAN (PCP/Family) Primary Care Physician Patient Instructions: Eczema (Atopic Dermatitis) (DC), Itchy Skin Add. Discharge Instructions: All discharge instructions reviewed with patient and/or family. Voiced understanding. Take medications as directed. Follow-up with your in a few days for recheck. Call her office for appointment. You may also call and make follow-up with your radio reporter to be rechecked this week if possible. Return for worse pain, weakness, breathing problems or other concerns as needed. Scripts Methylprednisolone (Methylprednisolone Dose Pack) 4 Mg Tablet 4 MG PO UD for 6 Days, #21 TAB 0 Refills FOLLOW DOSE PACK INSTRUCTIONS Prov: RADHA GRAYSON MD 01/19/20 RADHA GRAYSON MD Jan 19, 2020 22:05
--- NOTE | 2020-01-19 22:09 | Diagnostic Imaging Report ---
INDICATION: Body itches. Worsening over the last 5 days. EXAMINATION: Chest, 01/19/2020. COMPARISON: 07/10/2019. FINDINGS: The cardiomediastinal silhouette is unremarkable. The pulmonary vasculature is within normal limits. The lungs and pleural spaces are clear. IMPRESSION: No evidence of an acute cardiopulmonary process. Dictated by: Dictated on workstation # [id number]
[2020-01-19] MEDS ORDERED: NS IV 500 ML 500 ML IV ONE (22:10)
[2020-01-19] MEDS ORDERED: predniSONE 20 MG TAB PO ONE (23:00)
[2020-01-19] MEDS ORDERED: METH4TAB11 PO (23:38)
[2020-01-19 23:42] VITALS: BP 129/66
[2020-01-19] MEDS ORDERED: hydrOXYzine (VISTARIL/ATARAX) 25 MG capsule/tablet PO ONE (23:45)
== END 2020-01-19 23:44 | disposition home or self-care (01) ==
LOC: EDUNIT# 21:02 → ER 21:04
DX: L29.9 Pruritus, unspecified (principal); L30.9 Dermatitis, unspecified; Z88.2 Allergy status to sulfonamides; Z85.46 Personal history of malignant neoplasm of prostate
CPT/HCPCS: 36415; 71045; 80053; 83735; 83880; 84484; 85025; 93005

== ENCOUNTER 2020-01-31 11:15 | Emergency (ER) | payer MEDICARE, OTHER ==
[~2020-01-31] VITALS: Ht 177.8 cm; Wt 74.8 kg
[~2020-01-31 11:15] MED LIST changes: +METH4TAB11 PO
--- NOTE | 2020-01-31 11:32 | ED General ---
General Stated Complaint: WEAKNESS Source of Information: Patient, Family Exam Limitations: No Limitations History of Present Illness Date Seen by Provider: Jan 31, 2020 Time Seen by Provider: 11:29 Initial Comments To ER by private vehicle accompanied by daughter with reports of general weakness. He was seen here recently for a diffuse rash and given a Medrol Dosepak. Timing/Duration: Getting Worse, Intermittent Severity: Moderate Associated Systoms: Weakness Allergies and Home Medications Allergies Coded Allergies: Sulfa (Sulfonamide Antibiotics) (Unverified Allergy, Unknown, 04/15/19) Home Medications Methylprednisolone 4 Mg Tablet, 4 MG PO UD FOLLOW DOSE PACK INSTRUCTIONS Prescribed by: RADHA GRAYSON on 01/19/20 2338 Omeprazole 40 Mg Capsule.dr, 40 MG PO DAILY Prescribed by: RADHA GRAYSON on 07/10/19 1409 Tramadol HCl 50 Mg Tablet, 50 MG PO Q6H PRN for PAIN Prescribed by: KRUPA FELICIANO on 04/15/19 1837 Patient Home Medication List Home Medication List Reviewed: Yes Review of Systems Review of Systems Constitutional: see HPI; No chills, No fever EENTM: see HPI Respiratory: no symptoms reported; No cough, No dyspnea on exertion, No short of breath Cardiovascular: no symptoms reported; No chest pain Gastrointestinal: No abdominal pain Genitourinary: no symptoms reported Musculoskeletal: no symptoms reported Skin: see HPI, pruritus, rash Psychiatric/Neurological: No Symptoms Reported Hematologic/Lymphatic: No Symptoms Reported Immunological/Allergic: no symptoms reported Past Bneqjmz-Mhcbvu-Tcpgzw Hx Patient Social History 2nd Hand Smoke Exposure: No Recent Foreign Travel: No Contact w/Someone Who Travel: No Recent Hopitalizations: No Immunizations Up To Date Tetanus Booster (TDap): More than 5yrs Seasonal Allergies Seasonal Allergies: No Past Medical History Surgeries: Yes Adenoidectomy, Appendectomy, Tonsillectomy Respiratory: No Cardiac: No Neurological: No Genitourinary: Yes Prostate Problems, Kidney Stones Gastrointestinal: No Musculoskeletal: Yes (LEFT RIB FX) Fractures Endocrine: Yes Hypothyroidsim HEENT: Yes Cataract Loss of Vision: Denies Hearing Impairment: Denies Cancer: Yes Prostate Did You Recieve Any Treatments: Yes What Type of Treatment Did You: Other Psychosocial: No Integumentary: Yes Eczema Blood Disorders: No Family Medical History No Pertinent Family Hx Physical Exam Vital Signs Vital Signs - First Documented 01/31/20 11:25 Temp 36.8 Pulse 98 Resp 18 B/P (MAP) 124/79 (94) Pulse Ox 97 O2 Delivery Room Air Capillary Refill : Height, Weight, BMI Height: '" Weight: lbs. oz. kg; 23.00 BMI Method: General Appearance: No Apparent Distress, WD/WN Eyes: Bilateral Eye Normal Inspection, Bilateral Eye PERRL, Bilateral Eye EOMI Neck: Full Range of Motion Respiratory: Lungs Clear, Normal Breath Sounds, No Accessory Muscle Use, No Respiratory Distress Cardiovascular: Regular Rate, Rhythm, Normal Peripheral Pulses Gastrointestinal: Non Tender, Soft Extremity: Normal Capillary Refill, Normal Inspection Neurologic/Psychiatric: Alert, Oriented x3 Skin: Normal Color, Warm/Dry, Other (erythema with skin thickening and fissuring over the flexor surfaces of the arm. The rash that was present during his last visit I did take a look at and on the torso it is overall significantly improved.) Comments Despite allegations of weakness, he presents to ER and is ambulatory to room 6 without use of assistive device and able to carry on conversation while walking. Progress/Results/Core Measures Suspected Sepsis SIRS Temperature: Pulse: Respiratory Rate: Laboratory Tests 01/31/20 11:46: White Blood Count 7.1 Blood Pressure / Mean: Laboratory Tests 01/31/20 11:46: Creatinine 1.43H, Platelet Count 220, Total Bilirubin 0.6 Results/Orders Lab Results Laboratory Tests Test 01/31/20 11:46 01/31/20 12:45 Range/Units White Blood Count 7.1 4.3-11.0 10^3/uL Red Blood Count 4.55 4.35-5.85 10^6/uL Hemoglobin 14.0 13.3-17.7 G/DL Hematocrit 43 40-54 % Mean Corpuscular Volume 93 80-99 FL Mean Corpuscular Hemoglobin 31 25-34 PG Mean Corpuscular Hemoglobin Concent 33 32-36 G/DL Red Cell Distribution Width 13.1 10.0-14.5 % Platelet Count 220 130-400 10^3/uL Mean Platelet Volume 9.7 7.4-10.4 FL Neutrophils (%) (Auto) 85 H 42-75 % Lymphocytes (%) (Auto) 6 L 12-44 % Monocytes (%) (Auto) 1 0-12 % Eosinophils (%) (Auto) 7 0-10 % Basophils (%) (Auto) 0 0-10 % Neutrophils # (Auto) 6.0 1.8-7.8 X 10^3 Lymphocytes # (Auto) 0.5 L 1.0-4.0 X 10^3 Monocytes # (Auto) 0.1 0.0-1.0 X 10^3 Eosinophils # (Auto) 0.5 H 0.0-0.3 10^3/uL Basophils # (Auto) 0.0 0.0-0.1 10^3/uL Neutrophils % (Manual) 87 % Lymphocytes % (Manual) 5 % Monocytes % (Manual) 3 % Eosinophils % (Manual) 5 % Basophils % (Manual) 0 % Band Neutrophils 0 % Blood Morphology Comment NORMAL Sodium Level 138 135-145 MMOL/L Potassium Level 3.7 3.6-5.0 MMOL/L Chloride Level 106 98-107 MMOL/L Carbon Dioxide Level 22 21-32 MMOL/L Anion Gap 10 5-14 MMOL/L Blood Urea Nitrogen 33 H 7-18 MG/DL Creatinine 1.43 H 0.60-1.30 MG/DL Estimat Glomerular Filtration Rate 47 BUN/Creatinine Ratio 23 Glucose Level 78 70-105 MG/DL Calcium Level 9.0 8.5-10.1 MG/DL Corrected Calcium 9.2 8.5-10.1 MG/DL Total Bilirubin 0.6 0.1-1.0 MG/DL Aspartate Amino Transf (AST/SGOT) 17 5-34 U/L Alanine Aminotransferase (ALT/SGPT) 24 0-55 U/L Alkaline Phosphatase 72 40-136 U/L Troponin I < 0.028 <0.028 NG/ML B-Type Natriuretic Peptide < 10.0 <100.0 PG/ML Total Protein 6.7 6.4-8.2 GM/DL Albumin 3.7 3.2-4.5 GM/DL Thyroid Stimulating Hormone (TSH) 3.20 0.35-4.94 UIU/ML Free Thyroxine 1.03 0.70-1.48 NG/DL Urine Color YELLOW Urine Clarity CLEAR Urine pH 6.0 5-9 Urine Specific [place] 1.025 H 1.016-1.022 Urine Protein 1+ H NEGATIVE Urine Glucose (UA) NEGATIVE NEGATIVE Urine Ketones TRACE H NEGATIVE Urine Nitrite NEGATIVE NEGATIVE Urine Bilirubin 1+ H NEGATIVE Urine Urobilinogen 0.2 < = 1.0 MG/DL Urine Leukocyte Esterase NEGATIVE NEGATIVE Urine RBC (Auto) TRACE-I NEGATIVE Urine RBC RARE /HPF Urine WBC 2-5 /HPF Urine Squamous Epithelial Cells RARE /HPF Urine Crystals NONE /LPF Urine Bacteria TRACE /HPF Urine Casts NONE /LPF Urine Mucus NEGATIVE /LPF Urine Culture Indicated NO My Orders Orders - CLARENCE FREED APRN Ua Culture If Indicated (01/31/20 11:32) Troponin I (01/31/20 11:32) Ekg Tracing (01/31/20 11:32) Chest 1 View, Ap/Pa Only (01/31/20 11:32) BNP (01/31/20 11:32) Thyroid Stimulating Hormone (01/31/20 11:32) Free T4 (Free Thyroxine) (01/31/20 11:32) Ed Iv/Invasive Line Start (01/31/20 11:32) Ns Iv 500 Ml (Sodium Chloride 0.9%) (01/31/20 11:45) Cbc With Automated Diff (01/31/20 11:56) Comprehensive Metabolic Panel (01/31/20 11:56) Manual Differential (01/31/20 11:46) Vital Signs/I&O 01/31/20 11:25 Temp 36.8 Pulse 98 Resp 18 B/P (MAP) 124/79 (94) Pulse Ox 97 O2 Delivery Room Air Capillary Refill : Diagnostic Imaging Diagonstic Imaging: Xray Comments NAME: PENELOPE DELEON [facility] REC#: [id number] PT STATUS: REG ER : 1930 PHYSICIAN: CLARENCE FREED APRN ADMIT DATE: 01/31/20/ER Draft Date of Exam:01/31/20 CHEST 1 VIEW, AP/PA ONLY CLINICAL INDICATION: Patient complains of weakness. Patient had recent skin changes and diagnosed with eczema. No other symptoms per patient. EXAM: Portable chest x-ray upright view. COMPARISONS: Chest x-ray dated 01/19/2020. FINDINGS: Lungs/pleura: Lungs are clear. There is no pneumothorax. There is no pleural effusion. Mediastinum: Unremarkable. Pulmonary vasculature: Unremarkable. Heart: Unremarkable. Bones/extrathoracic soft tissue: There are degenerative spurs involving the thoracic spine. Old healed left rib fractures are again seen. IMPRESSION: Stable chest x-ray exam with no interval radiographic evidence of acute cardiopulmonary process. Dictated on workstation # [id number] Dict: 01/31/20 1226 Trans: 01/31/20 1230 [facility] [id number] Interpreted by: KIMBER UMAÑA MD Electronically signed by: Departure Communication (Admissions) Made an appointment for him with Dr. Holbrook tomorrow at 10:30 AM. Impression Primary Impression: Intermittent weakness Disposition: 01 HOME, SELF-CARE Condition: Stable Departure-Patient Inst. Decision time for Depature: 12:36 Referrals: NO,LOCAL PHYSICIAN (PCP/Family) Primary Care Physician Patient Instructions: Generalized Weakness Add. Discharge Instructions: I've made an appointment for you with Dr. Holbrook tomorrow at 10:30 AM. Copy Copies To 1: ROBBIE HOLBROOK MD, PETER J APRN Jan 31, 2020 11:32
[2020-01-31] MEDS ORDERED: NS IV 500 ML 500 ML IV SCH (11:45)
[2020-01-31 12:02] LABS: BASOPHILS % (AUTO) 0 % (0-10); EOSINOPHILS # (AUTO) 0.5 10^3/uL (0.0-0.3); EOSINOPHILS % (AUTO) 7 % (0-10); HEMATOCRIT 43 % (40-54); LYMPHOCYTES # (AUTO) 0.5 X 10^3 (1.0-4.0); LYMPHOCYTES % (AUTO) 6 % (12-44); MEAN CORPUSCULAR HEMOGLOBIN 31 PG (25-34); MEAN CORPUSCULAR HGB CONC 33 G/DL (32-36); MEAN CORPUSCULAR VOLUME 93 FL (80-99); MEAN PLATELET VOLUME 9.7 FL (7.4-10.4); MONOCYTES # (AUTO) 0.1 X 10^3 (0.0-1.0); MONOCYTES % (AUTO) 1 % (0-12); NEUTROPHILS % (AUTO) 85 % (42-75); PLATELET COUNT 220 10^3/uL (130-400); RED CELL DISTRIBUTION WIDTH 13.1 % (10.0-14.5); WHITE BLOOD COUNT 7.1 10^3/uL (4.3-11.0)
[2020-01-31 12:18] LABS: ALBUMIN 3.7 GM/DL (3.2-4.5); BILIRUBIN,TOTAL 0.6 MG/DL (0.1-1.0); CREATININE SERUM 1.43 MG/DL (0.60-1.30); POTASSIUM 3.7 MMOL/L (3.6-5.0); TOTAL PROTEIN 6.7 GM/DL (6.4-8.2)
--- OUTSIDE RECORDS SUMMARY | 2020-01-31 12:25 | XMS REPORT | Continuity of Care Document ---
Author Organization Unknown Address Unknown Phone Unavailable Allergies Active Description Code Type Severity Reaction Onset Reported/Identified Relationship to Patient Clinical Status Yes Sulfa (Sulfonamide Antibiotics) [id number] Drug Allergy Unknown N/A 019 Medications [...] STRIKE AG 04/15/2019 KRUPA BELLAMY Ot Y92.[address] [facility] [address] IN [facility] NON-INSTITUT (PRIVATE 04/15/2019 KRUPA BELLAMY Ot Z85.46 [...] KRUPA BELLAMY Ot Y92.[address] IN [facility] NON-INSTITUT (PRIVATE 04/27/2019 KRUPA BELLAMY Ot Z85.46 [...] ABSENCE OF OTHER ORGANS 07/16/2019 RADHA GRAYSON MD Ot E03.9 HYPOTHYROIDISM, UNSPECIFIED 07/16/2019 RADHA GRAYSON MD Ot K21.9 GASTRO-ESOPHAGEAL REFLUX DISEASE WITHOUT 07/16/2019 RADHA GRAYSON MD Ot R07.9 CHEST PAIN, UNSPECIFIED 07/16/2019 RADHA GRAYSON MD Ot Z85.46 PERSONAL HISTORY OF MALIGNANT NEOPLASM O 07/16/2019 RADHA GRAYSON MD Ot Z87.442 PERSONAL HISTORY OF URINARY CALCULI 07/16/2019 RADHA GRAYSON MD Ot Z88.2 ALLERGY STATUS TO SULFONAMIDES STATUS 07/16/2019 RADHA GRAYSON MD Ot Z90.49 ACQUIRED ABSENCE OF OTHER SPECIFIED PART 07/16/2019 RADHA GRAYSON MD Ot Z90.89 ACQUIRED ABSENCE OF OTHER ORGANS 01/22/2020 RADHA GRAYSON MD Ot L29.9 PRURITUS, UNSPECIFIED 01/22/2020 RADHA GRAYSON MD Ot L30.9 DERMATITIS, UNSPECIFIED 01/22/2020 RADHA GRAYSON MD Ot R53.1 WEAKNESS 01/22/2020 RADHA GRAYSON MD Ot Z85.46 PERSONAL HISTORY OF MALIGNANT NEOPLASM O 01/22/2020 RADHA GRAYSON MD Ot Z88.2 ALLERGY STATUS TO SULFONAMIDES STATUS 01/25/2020 RADHA GRAYSON MD Ot L29.9 PRURITUS, UNSPECIFIED 01/25/2020 RADHA GRAYSON MD Ot L30.9 DERMATITIS, UNSPECIFIED 01/25/2020 RADHA GRAYSON MD Ot R53.1 WEAKNESS 01/25/2020 RADHA GRAYSON MD Ot Z85.46 PERSONAL HISTORY OF MALIGNANT NEOPLASM O 01/25/2020 RADHA GRAYSON MD Ot Z88.2 ALLERGY STATUS TO SULFONAMIDES STATUS 01/27/2020 RADHA GRAYSON MD Ot L29.9 PRURITUS, UNSPECIFIED 01/27/2020 RADHA GRAYSON MD Ot L30.9 DERMATITIS, UNSPECIFIED 01/27/2020 RADHA GRAYSON MD Ot R53.1 WEAKNESS 01/27/2020 RADHA GRAYSON MD Ot Z85.46 PERSONAL HISTORY OF MALIGNANT NEOPLASM O 01/27/2020 RENUKA DOMÍNGUEZ, RADHA Jerome Ot Z88.2 ALLERGY STATUS TO SULFONAMIDES STATUS Procedures Code Description [place] [id number] OFFI CE VISIT-RETURN Winifred Valenzuela 11/15/2018 [id number] [facility] Nicolas Winifred 11/15/2018 Results Test Result [...] i.cardiac measurement (mass/v olume) < ng/mL <0.028 Complete blood count (CBC) with automate d white blood cell (WBC) differential - 01/19/20 21:31 Blood leukocytes automated count (number/volume) 9.0 10*3/uL 4.3-11.0 Blood erythrocytes automated count (number/volume) 4.59 10*6/uL 4.35-5.85 Venous blood hemoglobin measurement (mass/volume) 14.4 g/dL 13.3-17.7 Blood hematocrit (volume fraction) 43 % 40-54 Automated erythrocyte mean corpuscular volume 95 [ foz_us] 80-99 Automated erythrocyte mean corpuscular h emoglobin (mass per erythrocyte) 31 pg 25-34 Automated erythrocyte mean corpuscular h emoglobin concentration measurement (mass/volume) 33 g/dL 32-36 Automated erythrocyte distribution width ratio 13. 8 % 10.0- 14.5 Automated blood platelet count (count/volume) 304 10*3/uL 130-400 Automated blood platelet mean volume measurement 10.6 [foz_us] 7.4-10.4 Automated blood neutrophils/100 leukocytes 81 % 42-75 Automated blood lymphocytes/100 leukocytes 9 % 12-44 Blood monocytes/100 leukocytes 5 % 0-12 Automated blood eosinophils/100 leukocytes 5 % 0-10 Automated blood basophils/100 leukocytes 0 % 0-10 Blood neutrophils automated count (number/volume) 7.3 10*3 1.8-7.8 Blood lymphocytes automated count (number/volume) 0.8 10*3 1.0-4.0 Blood monocytes automated count (number/volume) 0. 5 10*3 0.0-1.0 Automated eosinophil count 0.4 10*3/uL 0 .0-0.3 Automated blood basophil count (count/volume) 0.0 10*3/uL 0.0-0.1 Comprehensive metabolic panel - 01/19/20 21:31 Serum or plasma sodium measurement (moles/volume) 139 mmol/L 135-145 Serum or plasma potassium measurement (moles/volume) 3.9 mmol/L 3.6-5.0 Serum or plasma chloride measurement (moles/volume) 107 mmol/L 98-107 Carbon dioxide 19 mmol/L 21-32 Serum or plasma anion gap determination (moles/volume) 13 mmol/L 5-14 Serum or plasma urea nitrogen measurement (mass/volume ) 18 mg/dL 7-18 Serum or plasma creatinine measurement (mass/volume) 1.46 mg/dL 0.60-1.30 Serum or plasma urea nitrogen/creatinine mass ratio 12 NRG Serum or plasma creatinine measurement w ith calculation of estimated glomerular filtration rate 46 NRG Serum or plasma glucose measurement (mass/volume) 119 mg/dL 70-105 Serum or plasma calcium measurement (mass/volume) 8.8 mg/dL 8.5-10.1 Serum or plasma total bilirubin measurement (mass/volu me) 0.8 mg/dL 0.1-1.0 Serum or plasma alkaline phosphatase cody surement (enzymatic activity/volume) 69 U/L 40-136 Serum or plasma aspartate aminotransfera se measurement (enzymatic activity/volume) 19 U/L 5-34 Serum or plasma alanine aminotransferase measurement (enzymatic activity/volume) 15 U/L 0-55 Serum or plasma protein measurement (mass/volume) 6.9 g/dL 6.4-8.2 Serum or plasma albumin measurement (mass/volume) 3.8 g/dL 3.2-4.5 CALCIUM CORRECTED 9.0 mg/dL 8.5-10.1 Magnesium - 01/19/20 21:31 Magnesium 1.7 mg/dL 1.6-2.4 Serum or plasma troponin i.cardiac measu rement (mass/volume) - 01/19/20 21:31 Serum or plasma troponin i.cardiac measurement (mass/v olume) < ng/mL <0.028 Serum or plasma lithium measurement (mol es/volume) - 01/19/20 21:31 BNP PT 23.3 pg/mL <100.0 Encounters ACCT No. Visit Date/Time Discharge Status Pt. Type Provider Facility Loc./Unit Complaint [id number] 11/15/2018 10:45:00 11/15/2018 23:5 9:59 CLS Outpatient Winifred Valenzuela Derek [id number] 01/19/2020 21:04:00 23:44:00 DIS Outpatient RADHA GRAYSON MD [facility] ER WEAKNESS/SWOLLE N LEGS [id number] 07/10/2019 10:41:00 020 14:15:00 DIS Emergency RADHA GRAYSON MD [facility] ER CHEST PAIN [id number] 04/15/2019 16:45:00 019 19:16:00 DIS Emergency KRUPA BELLAMY [facility] ER FALL/HEAD INJ
[2020-01-31 12:31] LABS: BAND NEUTROPHILS 0 %; BASOPHILS % (MANUAL) 0 %; EOSINOPHILS % (MANUAL) 5 %; LYMPHOCYTES % (MANUAL) 5 %; MONOCYTES % (MANUAL) 3 %; NEUTROPHILS % (MANUAL) 87 %; RBC MORPH NORMAL
--- NOTE | 2020-01-31 12:31 | Diagnostic Imaging Report ---
CLINICAL INDICATION: Patient complains of weakness. Patient had recent skin changes and diagnosed with eczema. No other symptoms per patient. EXAM: Portable chest x-ray upright view. COMPARISONS: Chest x-ray dated 01/19/2020. FINDINGS: Lungs/pleura: Lungs are clear. There is no pneumothorax. There is no pleural effusion. Mediastinum: Unremarkable. Pulmonary vasculature: Unremarkable. Heart: Unremarkable. Bones/extrathoracic soft tissue: There are degenerative spurs involving the thoracic spine. Old healed left rib fractures are again seen. IMPRESSION: Stable chest x-ray exam with no interval radiographic evidence of acute cardiopulmonary process. Dictated by: Dictated on workstation # [id number]
[2020-01-31 12:39] LABS: FREE T4 (FREE THYROXINE) 1.03 NG/DL (0.70-1.48)
[2020-01-31 12:53] LABS: CLARITY,URINE CLEAR; COLOR,URINE YELLOW; GLUCOSE, URINE (UA) NEGATIVE (NEGATIVE); KETONES,URINE TRACE (NEGATIVE); LEUKOCYTE ESTERASE ,URINE NEGATIVE (NEGATIVE); NITRITE,URINE NEGATIVE (NEGATIVE); PROTEIN,URINE 1+ (NEGATIVE)
[2020-01-31 13:11] LABS: BACTERIA,URINE TRACE /HPF; BILIRUBIN,URINE 1+ (NEGATIVE); RBC,URINE RARE /HPF; SQUAMOUS EPITHELIAL CELL,UR RARE /HPF
--- NOTE | 2020-01-31 13:24 | NUR ---
Contacted daughter, Sari, regarding pt report et findings. This RN reviewed discharge instructions with Sari who voices no c/o or concerns regarding care recieved while in ED care.
[2020-01-31] MEDS ORDERED: ONDANSETRON 4 MG/2 ML (SDV) Z0FRAN ONE (13:28)
[2020-01-31] MEDS ORDERED: ONDANSETRON 4 MG/2 ML (SDV) Z0FRAN IVP ONE (13:30)
[2020-01-31 13:40] VITALS: BP 126/73
== END 2020-01-31 13:40 | disposition home or self-care (01) ==
LOC: EDUNIT# 11:15 → ER 11:16
DX: R53.1 Weakness (principal); Z88.2 Allergy status to sulfonamides; Z85.46 Personal history of malignant neoplasm of prostate
CPT/HCPCS: 36415; 71045; 80053; 81000; 83880; 84439; 84443; 84484; 85007; 85027; 93005

== ENCOUNTER → 2020-02-07 | Outpatient (CLI) | payer MEDICARE, OTHER ==
[~2020-02-07] VITALS: Ht 177 cm; Wt 75.0 kg
[~2020-02-07] MED LIST changes: +CETI10TA17 PO; +CHOL100048 PO; +LEVO25TA5 PO; +MAGN500C15 PO
== END ==
LOC: PREOP 05:38
PROVIDERS: ATTEND Specialist
DX: Z01.818 Encounter for other preprocedural examination (principal); H25.11 Age-related nuclear cataract, right eye

== ENCOUNTER 2020-02-08 07:22 | Day surgery (SDC) | payer MEDICARE, OTHER ==
[~2020-02-08] VITALS: Ht 177 cm; Wt 75.0 kg
--- OUTSIDE RECORDS SUMMARY | 2020-02-08 07:40 | XMS REPORT | Continuity of Care Document ---
Author Organization Unknown Address Unknown Phone Unavailable Allergies Active Description Code Type Severity Reaction Onset Reported/Identified Relationship to Patient Clinical Status Yes Sulfa (Sulfonamide Antibiotics) [id number] 0491 Drug Allergy Unknown N/A 019 Medications [...] STRIKE AG 04/15/2019 KRUPA BELLAMY Ot Y92.[address] [facility] [address] IN [facility] NON-INSTITUT (PRIVATE 04/15/2019 KRUPA BELLAMY Ot [...] KRUPA BELLAMY Ot Y92.[address] IN [facility] NON-INSTITUT (PRIVATE 04/27/2019 KRUPA BELLAMY Ot Z85.46 PERSONAL HISTORY OF MALIGNANT NEOPLASM O 04/27/2019 KRUPA BELLAMY Ot Z87.442 PERSONAL HISTORY OF URINARY CALCULI 04/27/2019 KRUPA BELLAMY Ot Z88.2 ALLERGY STATUS TO SULFONAMIDES STATUS 04/27/2019 KRUPA BELLAMY Ot Z90.49 ACQUIRED ABSENCE OF OTHER SPECIFIED PART 04/27/2019 KRUPA BELLAMY Ot Z90.89 ACQUIRED ABSENCE OF OTHER ORGANS 07/10/2019 RDAHA GRAYSON MD, Ot E03.9 HYPOTHYROIDISM, UNSPECIFIED 07/10/2019 [...] Ot Z90.89 ACQUIRED ABSENCE OF OTHER ORGANS 01/19/2020 RADHA GRAYSON MD Ot L29.9 PRURITUS, UNSPECIFIED 01/19/2020 RADHA GRAYSON MD Ot L30.9 DERMATITIS, UNSPECIFIED 01/19/2020 RADHA GRAYSON MD Ot R53.1 WEAKNESS 01/19/2020 RADHA GRAYSON MD Ot Z85.46 PERSONAL HISTORY OF MALIGNANT NEOPLASM O 01/19/2020 RADHA GRAYSON MD Ot Z88.2 ALLERGY STATUS TO SULFONAMIDES STATUS 01/22/2020 RADHA GRAYSON MD Ot L29.9 PRURITUS, [...] PERSONAL HISTORY OF MALIGNANT NEOPLASM O 01/27/2020 RADHA GRAYSON MD Ot Z88.2 ALLERGY STATUS TO SULFONAMIDES STATUS 02/02/2020 CLARENCE FREED APRN Ot R53 .1 WEAKNESS 02/02/2020 CLARENCE FREED APRN Ot Z85.46 PERSONAL HISTORY OF MALIGNANT NEOPLASM O 02/02/2020 CLARENCE FREED APRN Ot Z88 .2 ALLERGY STATUS TO SULFONAMIDES STATUS Procedures Code Description [place] [id number] OFFI CE VISIT-RETURN Nicolas Winifred 11/15/2018 [id number] [facility] 11/15/2018 Results Test Result Range Complete blood [...] 01/19/20 21:31 BNP PT 23.3 pg/mL <100.0 Complete blood count (CBC) with automate d white blood cell (WBC) differential - 01/31/20 11:46 Blood leukocytes automated count (number/volume) 7.1 10*3/uL 4.3-11.0 Blood erythrocytes automated count (number/volume) 4.55 10*6/uL 4.35-5.85 Venous blood hemoglobin measurement (mass/volume) 14.0 g/dL 13.3-17.7 Blood hematocrit (volume fraction) 43 % 40-54 Automated erythrocyte mean corpuscular volume 93 [ foz_us] 80-99 Automated erythrocyte mean corpuscular h emoglobin (mass per erythrocyte) 31 pg 25-34 Automated erythrocyte mean corpuscular h emoglobin concentration measurement (mass/volume) 33 g/dL 32-36 Automated erythrocyte distribution width ratio 13. 1 % 10.0- 14.5 Automated blood platelet count (count/volume) 220 10*3/uL 130-400 Automated blood platelet mean volume measurement 9.7 [foz_us] 7.4-10.4 Automated blood neutrophils/100 leukocytes 85 % 42-75 Automated blood lymphocytes/100 leukocytes 6 % 12-44 Blood monocytes/100 leukocytes 1 % 0-12 Automated blood eosinophils/100 leukocytes 7 % 0-10 Automated blood basophils/100 leukocytes 0 % 0-10 Blood neutrophils automated count (number/volume) 6.0 10*3 1.8-7.8 Blood lymphocytes automated count (number/volume) 0.5 10*3 1.0-4.0 Blood monocytes automated count (number/volume) 0. 1 10*3 0.0-1.0 Automated eosinophil count 0.5 10*3/uL 0 .0-0.3 Automated blood basophil count (count/volume) 0.0 10*3/uL 0.0-0.1 Comprehensive metabolic panel - 01/31/20 11:46 Serum or plasma sodium measurement (moles/volume) 138 mmol/L 135-145 Serum or plasma potassium measurement (moles/volume) 3.7 mmol/L 3.6-5.0 Serum or plasma chloride measurement (moles/volume) 106 mmol/L 98-107 Carbon dioxide 22 mmol/L 21-32 Serum or plasma anion gap determination (moles/volume) 10 mmol/L 5-14 Serum or plasma urea nitrogen measurement (mass/volume ) 33 mg/dL 7-18 Serum or plasma creatinine measurement (mass/volume) 1.43 mg/dL 0.60-1.30 Serum or plasma urea nitrogen/creatinine mass ratio 23 NRG Serum or plasma creatinine measurement w ith calculation of estimated glomerular filtration rate 47 NRG Serum or plasma glucose measurement (mass/volume) 78 mg/dL 70-105 Serum or plasma calcium measurement (mass/volume) 9.0 mg/dL 8.5-10.1 Serum or plasma total bilirubin measurement (mass/volu me) 0.6 mg/dL 0.1-1.0 Serum or plasma alkaline phosphatase cody surement (enzymatic activity/volume) 72 U/L 40-136 Serum or plasma aspartate aminotransfera se measurement (enzymatic activity/volume) 17 U/L 5-34 Serum or plasma alanine aminotransferase measurement (enzymatic activity/volume) 24 U/L 0-55 Serum or plasma protein measurement (mass/volume) 6.7 g/dL 6.4-8.2 Serum or plasma albumin measurement (mass/volume) 3.7 g/dL 3.2-4.5 CALCIUM CORRECTED 9.2 mg/dL 8.5-10.1 Manual absolute plasma cell count - 01/03 11:46 Blood monocytes/100 leukocytes 3 % NRG Manual blood segmented neutrophils/100 leukocytes 87 % NRG Blood band neutrophils/100 leukocytes 0 % NRG Manual blood lymphocytes/100 leukocytes 5 % NRG Manual eosinophils/100 leukocytes in nose 5 % NRG Manual blood basophils/100 leukocytes 0 % NRG Blood erythrocyte morphology finding identification NORMAL NRG Serum or plasma lithium measurement (mol es/volume) - 01/31/20 11:46 BNP PT < 10.0 <100.0 Serum or plasma troponin i.cardiac measu rement (mass/volume) - 01/31/20 11:46 Serum or plasma troponin i.cardiac measurement (mass/v olume) < ng/mL <0.028 THYROID STIMULATING HORMONE - 01/31/20 1 1:46 THYROID STIMULATING HORMONE 3.20 u[iU]/mL 0.35-4.94 Serum or plasma thyroxine (T4) free cyndi urement (mass/volume) - 01/31/20 11:46 Serum or plasma thyroxine (T4) free measurement (mass/ volume) 1.03 ng/dL 0.70-1.48 Complete urinalysis with reflex to cultu re - 01/31/20 12:45 Urine color determination YELLOW NRG Urine clarity determination CLEAR NR G Urine pH measurement by test strip 6.0 5-9 Specific gravity of urine by test strip 1.025 1.016-1.022 Urine protein assay by test strip, semi-quantitative 1+ NEGATIVE Urine glucose detection by automated test strip NE GATIVE NEGATIVE Erythrocytes detection in urine sediment by light micr oscopy TRACE-I NEGATIVE Urine ketones detection by automated test strip TR EMANUEL NEGATIVE Urine nitrite detection by test strip NEGATIVE NEGATIVE Urine total bilirubin detection by test strip 1+ NEGATIVE Urine urobilinogen measurement by automated test strip (mass/volume) 0.2 mg/dL < = 1.0 Urine leukocyte esterase detection by dipstick NEG ATIVE NEGATIVE Automated urine sediment erythrocyte cou nt by microscopy (number/high power field) RARE NRG Automated urine sediment leukocyte count by microscopy (number/high power field) [HPF] NRG Bacteria detection in urine sediment by light microsco py TRACE NRG Squamous epithelial cells detection in u rine sediment by light microscopy RARE NRG Crystals detection in urine sediment by light microsco py NONE NRG Casts detection in urine sediment by light microscopy NONE NRG Mucus detection in urine sediment by light microscopy NEGATIVE NRG Complete urinalysis with reflex to culture NO NRG Encounters ACCT No. Visit Date/Time Discharge Status Pt. Type Provider Facility Loc./Unit Complaint [id number] 11/15/2018 10:45:00 11/15/2018 23:5 9:59 CLS Outpatient Winifred Valenzuela [id number] 01/31/2020 11:16:00 13:40:00 DIS Outpatient CLARENCE FREED APRN [facility] ER WEAKNESS [id number] 01/19/2020 21:04:00 23:44:00 DIS Emergency RADHA GRAYSON MD [facility] ER WEAKNESS/SWOLLE N LEGS [id number] 07/10/2019 10:41:00 14:15:00 DIS Emergency RADHA GRAYSON MD [facility] ER CHEST PAIN [id number] 04/15/2019 16:45:00 19:16:00 DIS Emergency KRUPA BELLAMY [facility] ER FALL/HEAD INJ [id number] 02/08/2020 10:15:00 P EVANGELINA Steinberg MD [facility] CATARACT RIGHT EYE
[2020-02-08 08:10] VITALS: BP 115/89
[2020-02-08] MEDS ORDERED: POVIDONE (BETADINE) OPHTH SOLN 5% 30 ML OP ONE (08:15)
[2020-02-08] MEDS ORDERED: LIDOCAINE PF 1% 2 ML VIAL IR PRN (08:15)
[2020-02-08] MEDS ORDERED: MOXIFLOXACIN OPHTH SOLN 5 MG/ML 0.3 ML SYRINGE OP ONE (08:15)
[2020-02-08] MEDS ORDERED: TIMOLOL MALEATE 0.5% 5 ML (TIMOPTIC) BTL OU PRN (08:15)
[2020-02-08] MEDS: TETRACAINE 0.5% OPHTH SOLN 4 ML BTL (SINGLE DOSE ONLY) OU PRN ×4 (08:17→08:48)
[2020-02-08] MEDS: PHENYLEPHRINE 10% OPHTH (NEO-SYN) 5 ML BTL OU SCH ×3 (08:28→08:48)
[2020-02-08] MEDS: CYCLOPENTOLATE 1% (CYCLOGYL) 2 ML DROPS OP SCH ×3 (08:28→08:48)
[2020-02-08] MEDS ORDERED: MIDAZOLAM 2 MG/2 ML (VERSED) VIAL ONE (08:30)
--- NOTE | 2020-02-08 09:09 | Ophthalmologist Pre-Op Note ---
Pre-Operative Progress Note H&P Reviewed The H&P was reviewed, patient examined and no changes noted. Date H&P Reviewed: Feb 08, 2020 Time H&P Reviewed: 09:08 Pre-Op Dx Cataract, Right Eye EVANGELINA GRAHAM MD Feb 08, 2020 09:08
--- NOTE | 2020-02-08 09:31 | Ophthalmology Operative Report ---
Cataract removal/placement IOL PREOPERATIVE DIAGNOSIS: Cataract Right Eye POSTOPERATIVE DIAGNOSIS: Cataract Right Eye PROCEDURE: Cataract removal and placement of posterior chamber implant, right eye SURGEON: Alfonso Graham ANESTHESIA: Topical with sedation COMPLICATIONS: None ESTIMATED BLOOD LOSS: Minimal DESCRIPTION OF PROCEDURE: After proper informed consent was obtained, the patient, a 89 male, was taken to the Operating Room and the right eye was anesthetized with tetracaine. The right eye was then prepped and draped in the usual manner. A wire lid speculum was placed. A paracentesis was made at the left hand position. Preservative free lidocaine was injected into the anterior chamber followed by viscoelastic. A clear corneal incision was made in the temporal position. A capsulorrhexis was preformed and the central nuclear and cortical material were removed. The posterior capsule was polished and Apolinar 20.0 AU00T0 IOL was placed into the capsular bag. The residual viscoelastic was aspirated and balanced saline solution was injected into the anterior chamber. Moxifloxacin was injected into the anterior chamber. The wound was checked and found to be water tight. The patient tolerated the procedure well without complications. ALFONSO GRAHAM MD Feb 08, 2020 09:31
[2020-02-08 09:50] VITALS: BP 104/79
--- NOTE | 2020-02-08 13:33 | Anesthesia-General Post-Op ---
MAC Patient Condition Mental Status/LOC: Same as Preop Cardiovascular: Satisfactory Nausea/Vomiting: Absent Respiratory: Satisfactory Pain: Controlled Complications: Absent Post Op Complications Complications None Follow Up Care/Instructions Patient Instructions None needed. Anesthesiology Discharge Order Discharge Order Patient is doing well, no complaints, stable vital signs, no apparent adverse anesthesia problems. No complications reported per nursing. BRENDA STONE CRNA Feb 08, 2020 13:33
== END 2020-02-08 09:50 | disposition home or self-care (01) ==
LOC: SDC 07:22
PROVIDERS: ATTEND Specialist
DX: H25.11 Age-related nuclear cataract, right eye (principal); E07.9 Disorder of thyroid, unspecified; Z79.890 Hormone replacement therapy; Z85.46 Personal history of malignant neoplasm of prostate
CPT/HCPCS: 66984; V2632

== ENCOUNTER → 2021-12-09 | Outpatient (CLI) | payer OTHER ==
[~2021-12-09] VITALS: Ht 175.3 cm; Wt 68.5 kg
[~2021-12-09] MED LIST changes: -OMEP40CA27 PO; +OMEP40CA6 PO
== END | disposition home or self-care (01) ==
LOC: PREOP 05:32
PROVIDERS: ATTEND Surgery
DX: Z01.818 Encounter for other preprocedural examination (principal)

== ENCOUNTER 2021-12-22 07:33 | Day surgery (SDC) | payer MEDICARE, OTHER ==
[~2021-12-22] VITALS: Ht 175 cm; Wt 68.5 kg
--- NOTE | 2021-12-22 07:49 | Progress Note-Pre Operative ---
Pre-Operative Progress Note H&P Reviewed The H&P was reviewed, patient examined and no changes noted. Date Seen by Provider: Dec 22, 2021 Time Seen by Provider: 07:48 Date H&P Reviewed: Dec 22, 2021 Time H&P Reviewed: 07:48 Pre-Operative Diagnosis: gerd dysphagia CELIA PEGUERO DO Dec 22, 2021 07:49
[2021-12-22] MEDS ORDERED: LACTATED RINGERS 1,000 ML IV ONE (08:04)
[2021-12-22 08:05] VITALS: BP 127/68
[2021-12-22] MEDS ORDERED: LACTATED RINGERS 1,000 ML IV STA (08:06)
[2021-12-22] MEDS ORDERED: HURRICAINE EXT TUBE (BENZOCAINE) XX PRN (08:15)
[2021-12-22] MEDS ORDERED: proPOfol 200 MG/20 ML (DIPRIVAN) VIAL IV ONE (08:49)
--- NOTE | 2021-12-22 09:03 | Anesthesia-General Post-Op ---
MAC Patient Condition Mental Status/LOC: Same as Preop Cardiovascular: Satisfactory Nausea/Vomiting: Absent Respiratory: Satisfactory Pain: Controlled Complications: Absent Post Op Complications Complications None Follow Up Care/Instructions Patient Instructions None needed. Anesthesiology Discharge Order Discharge Order Patient is doing well, no complaints, stable vital signs, no apparent adverse anesthesia problems. No complications reported per nursing. TIFFANY BLOCK CRNA Dec 22, 2021 09:03
[2021-12-22 09:05] VITALS: BP 146/70
--- NOTE | 2021-12-22 09:05 | Progress Note-Post Operative ---
Post-Operative Progess Note Surgeon (s)/Spindle Repairer (s) Surgeon CELIA PEGUERO DO Spindle Repairer: na Pre-Operative Diagnosis gerd dysphagia Post-Operative Diagnosis gastritis, schotskis ring Procedure & Operative Findings Date of Procedure 12/22/21 Procedure Performed/Findings egd c biopsies Anesthesia Type per general engineer Estimated Blood Loss Estimated blood loss (mL): none Specimens/Packing Specimens Removed antrum, body and ge CELIA PEGUERO DO Dec 22, 2021 09:05
[2021-12-22] MEDS ORDERED: PANT40TA2 PO (09:06)
--- NOTE | 2021-12-22 09:06 | Discharge Inst-Simple/Standard ---
Discharge Inst-Standard Discharge Medications New, Converted or Re-Newed RX: Transmitted to Pharmacy Patient Instructions/Follow Up Plan of Care/Instructions/FU: 2 weeks Janae Activity as Tolerated: Yes Discharge Diet: Regular Diet CELIA PEGUERO DO Dec 22, 2021 09:06
[2021-12-22 09:10] VITALS: BP 130/63
[2021-12-22 09:30] VITALS: BP 132/70
--- NOTE | 2021-12-22 16:40 | OPERATIVE REPORT ---
DATE OF SERVICE: 12/22/2021 PREOPERATIVE DIAGNOSES: Gastroesophageal reflux disease and dysphagia. POSTOPERATIVE DIAGNOSES: Gastritis and Schatzki's ring. PROCEDURES PERFORMED: EGD with biopsy. SURGEON: Celia Cardoso DO. ANESTHESIA: Per SOCCER COMMENTATOR. ESTIMATED BLOOD LOSS: None. COMPLICATIONS: None. SPECIMENS: Antrum, body and GE junction. INDICATIONS FOR PROCEDURE: The patient is an 89-year-old male with GERD symptoms and recent history of dysphagia, not having dysphagia symptoms currently. He understands the risks and benefits of the procedure and wishes to proceed. Consent was signed in the chart. DESCRIPTION OF PROCEDURE: The patient was taken to the endoscopy suite and placed in the left lateral recumbent position. Timeout was performed. Scope was inserted in mouth, down the esophagus, stomach and into the duodenum without difficulty. There were no polyps, masses or ulcerations within the duodenum. Scope was slowly retracted back into the stomach, where it was further insufflated. No polyps, masses or ulcerations in the antrum. Biopsy of the antrum was obtained. Scope was slowly retracted back in the body of the stomach, area of gastritis, apparent possible healing ulcer. Biopsy of this area was obtained. Scope was retroflexed noting no other pathology. Scope was returned to its normal position, slowly withdrawn into distal esophagus. At the GE junction where there was a Schatzki's ring with minimal narrowing present, biopsy of this area was obtained. Scope was then continuously and slowly retracted back until completely removed, noting no other pathology. The patient tolerated the procedure well without complications and taken to recovery room in stable condition. RECOMMENDATIONS: The patient will be started on Protonix 40 mg daily. If he has return of dysphagia symptoms, we would consider repeating EGD and dilating this area of the GE junction. The patient will follow up in two weeks. Job ID: [id number] DocumentID: [id number] Dictated Date: 12/22/2021 09:09:20 Home Energy Inspector Date: 12/22/2021 16:39:54 Dictated By: CELIA CARDOSO DO
== END 2021-12-22 09:40 | disposition home or self-care (01) ==
LOC: ENDO 07:33
PROVIDERS: ATTEND Surgery
DX: K29.50 Unspecified chronic gastritis without bleeding (principal); K20.90 Esophagitis, unspecified without bleeding; K22.2 Esophageal obstruction; Z79.899 Other long term (current) drug therapy; Z88.2 Allergy status to sulfonamides